=== PATIENT | female | born 1970 | race Asian ===

== ENCOUNTER → 2019-08-17 | Outpatient (CLI) | payer OTHER ==
--- NOTE | 2019-08-18 14:40 | REPMRS ---
Patient History The patient states she had a clinical breast exam in June 2019.Patient has history of breast cancer at age 36. Took tamoxifen for 5 years. Digital Mammo Screening Bilat: August 17, 2019 - Exam #: [id number] Bilateral CC and MLO view(s) were taken. Technologist: Roberta Szymanski, Technologist Prior study comparison: August 04, 2018, left breast diagnostic unilateral mammo, performed at [facility]. July 23, 2017, left breast diagnostic unilateral mammo, performed at [facility]. July 17, 2016, left breast diagnostic unilateral mammo, performed at [facility]. FINDINGS: The breast tissue is heterogeneously dense. This may lower the sensitivity of mammography. There has been no change in the appearance of the left breast parenchyma in the interval since the prior examination. No mass, architectural distortion, or microcalcific grouping has developed. No suspicious finding. Assessment: BI-RADS/ACR category 2 mammogram. Benign Findings. Recommendation Routine screening mammogram of the left breast in 1 year. This mammogram was interpreted with the aid of an FDA-approved computer-aided dectection system. Electronically Signed By: Raffi Navarrete MD 08/18/19 [id number]
== END ==
LOC: M RAD 08:26
PROVIDERS: ATTEND Internal Medicine Hematology & Oncology
DX: Z12.31 Encounter for screening mammogram for malignant neoplasm of breast (principal)

== ENCOUNTER → 2019-09-08 | Outpatient (CLI) | payer OTHER ==
[~2019-09-08] MED LIST: ZYRTTAB8 PO
--- NOTE | 2019-09-08 21:46 | ECHO ---
DATE OF PROCEDURE: 09/08/2019 REFERRING PHYSICIAN: Beni Luque MD INDICATION: Chemotherapy. HEIGHT: 162 cm WEIGHT: 66 kg DIMENSIONS: IVS: 0.7 LV: 4.5 LVPW: 0.8 LA: 3.3 Aorta: 2.6 RV: 2.8 Left atrial volume index: 22 IVC: 1.4 Mitral E wave velocity: 109, A wave: 110 E prime septal: 9.9 E prime lateral: 10.9 FINDINGS: The study is of acceptable technical quality. The patient is in sinus rhythm. Left ventricle is normal size and systolic function with estimated left ventricular ejection fraction (LVEF) around 55-60%. Calculated left ventricle (LV) was 59%. Right ventricle is normal size and systolic function as well. Both atria appear normal. All four cardiac valves were reasonably well seen and appear normal. No pericardial effusion is noted. Inferior vena cava is of normal size. Aortic root and abdominal aorta appear normal. Aortic arch was not well visualized. Doppler interrogation reveals competent aortic valve. There is trace mitral and trace tricuspid insufficiency. Calculated pulmonary artery pressure is within normal limits. Pulmonic valve is functionally competent. Mitral inflow pattern and tissue Doppler imaging of mitral annulus reveal likely normal diastolic function even though there is virtually identical E and A wave velocity on mitral inflow. CONCLUSIONS 1. Study is of acceptable technical quality. 2. Normal LV size and systolic function, normal diastolic function. 3. No significant valvular disease. 4. Normal central venous pressure and likely normal pulmonary artery pressure. COMMENT: Subacute bacterial endocarditis (SBE) prophylaxis is not recommended. Essentially normal echocardiogram.
== END ==
LOC: M CARPUL 08:23
PROVIDERS: ATTEND Internal Medicine Hematology
DX: C50.919 Malignant neoplasm of unspecified site of unspecified female breast (principal)

== ENCOUNTER 2019-11-19 05:59 | Inpatient (IN) | payer OTHER ==
[2019-11-19] VITALS (7 sets, daily range): BP systolic 99–117; BP diastolic 54–65
[~2019-11-19] VITALS: Ht 160 cm; Wt 69.4 kg
[2019-11-19] MEDS ORDERED: LR 1,000 ML IV ONE (06:00)
[2019-11-19] MEDS ORDERED: ceFAZolin SOD 1 GM in D5W MINI-BAG PLUS 50 ML IV ONE (06:00)
[2019-11-19] MEDS ORDERED: QC A650T3 PO (06:48)
[2019-11-19] MEDS ORDERED: SCOPOLAMINE 1MG TRANSDERMAL PATCH TOP ONE (07:15)
[2019-11-19] MEDS ORDERED: LIDOCAINE 1% MDV 20ML VIAL As Ordered ONE (07:17)
[2019-11-19] MEDS ORDERED: BUPIVACAINE LIPOSOME/PF 1.3% 20ML VIAL (13.3MG/ML)(EXPAREL)(C9290 PER1MG) As Ordered ONE (07:17)
[2019-11-19] MEDS ORDERED: BACITRACIN PWD 50,000 UNITS VIAL As Ordered ONE ×2 (07:17→12:12)
[2019-11-19] MEDS ORDERED: EPINEPHrine INJ 1 MG/ML 1ML VIAL As Ordered ONE (07:17)
[2019-11-19] MEDS ORDERED: ONDANSETRON 4MG/2ML VIAL (J2405) As Ordered ONE (07:25)
[2019-11-19] MEDS ORDERED: LIDOCAINE 2% INJ 100 MG/5 ML SDV (FOR ANES.) As Ordered ONE (07:25)
[2019-11-19] MEDS ORDERED: ROCURONIUM BROMIDE 50 MG/5 ML VIAL As Ordered ONE ×2 (07:25→09:00)
[2019-11-19] MEDS ORDERED: fentaNYL 250 MCG/5 ML INJECTION (J3010) As Ordered ONE (07:25)
[2019-11-19] MEDS ORDERED: propofoL 200 MG/20 ML VIAL As Ordered ONE (07:25)
[2019-11-19] MEDS ORDERED: dexameTHASONE 4 MG/ML 1ML VIAL (J1100) As Ordered ONE (07:25)
[2019-11-19] MEDS ORDERED: MIDAZOLAM INJ 2 MG/2 ML VIAL (J2250) As Ordered ONE (07:26)
[2019-11-19] MEDS ORDERED: LACRILUBE (AKWA TEARS) OPHTH OINT 3.5 GM As Ordered ONE (07:56)
[2019-11-19] MEDS ORDERED: ePHEDrine SULFATE 25 MG/5 ML(5MG/ML) SYRINGE As Ordered ONE (08:25)
[2019-11-19] MEDS ORDERED: PHENYLephrine HCL 500 MCG/5 ML (100MCG/ML) SYRINGE (J2370) As Ordered ONE (08:25)
[2019-11-19] MEDS ORDERED: HYDROmorphone HCL 2 MG/ML 1ML VIAL (J1170) As Ordered ONE (09:02)
[2019-11-19] MEDS ORDERED: REMIFENTANIL 1MG 3ML VIAL As Ordered ONE (09:03)
[2019-11-19] MEDS ORDERED: SEVOFLURANE INHAL SOLN 250 ML BTL As Ordered ONE (09:41)
--- NOTE | 2019-11-19 10:30 | HPEPDOC ---
General Date of Admission Nov 19, 2019 at 05:59 Date of Service: Nov 19, 2019 Chief Complaint The patient is a 49-year-old female admitted with a reason for visit of Malignant Neoplasm, Absence Of Right Breast. Source: Patient Exam Limitations: No limitations Timing/Duration: Other (, not applicable) Severity: Other (not applicable) Associated Symptoms: Other (not applicable) History of Present Illness 49 years old lady with past medical history of seasonal allergies, breast cancer, status post right mastectomy, left ovary removed was brought to or by plastic surgery for right breast reconstruction surgery with Dr. richardson. Patient transferred to medical floor after she was stabilized in postop care unit. Patient offers no new complaints. Comfortable in no apparent distress. is at bedside and is at bedside as well Home Medications Scheduled Cetirizine HCl/Pseudoephedrine (Zyrtec-D Tablet) 1 Each Tab.er.12h, 1 TAB PO PRN, (Reported) Scheduled PRN Acetaminophen (Acetaminophen 8 Hour) 650 Mg Tablet.er, 650 MG PO PRN PRN for PAIN, (Reported) Allergies Coded Allergies: No Known Allergies (Unverified , 11/19/19) Past Medical History Medical History Seasonal allergies, breast cancer, right breast mastectomy, left ovary removed, 5 para 2, abarta. 3 Surgical History Right mastectomy. Left oophrectomy Family History Significant Family History: No pertinent family hx Social History * Smoker: Denies Alcohol: Denies Drugs: denies A-FIB/CHADSVASC A-FIB History Current/History of A-Fib/PAF?: No Review of Systems Constitutional: Denies: Chills, Fever, Malaise, Night Sweats, Weakness, Fatigue, Weight Loss, Lethargy, Other Eyes: Denies: Pain, Vision change, Conjunctivae inflammation, Eyelid inflammation, Redness, Other ENT: Denies: Head Aches, Ear Pain, Dysphagia, Sinus Congestion, Post Nasal Drip, Sore Throat, Epistaxis, Other Symptoms Skin: Denies: Rash, Lesions, Breakdown Pulmonary: Denies: Dyspnea, Cough, Pleuritic Chest Pain, Other Symptoms Cardiovascular: Denies: Chest Pain, Palpitations, Orthopnea, Paroxysmal Noc. Dyspnea, Edema, Lt Headedness, Other Symptoms Gastrointestinal: Denies: Nausea, Vomiting, Abdominal Pain, Diarrhea, Constipation, Melena, Hematochezia, Other Symptoms Genitourinary: Denies: Dysuria, Frequency, Incontinence, Hematuria, Retention, Other Symptoms Hematologic: Denies: Bruising, Bleeding Excessively, Petecchia, Purpura, Enlarged Lymph Nodes, Other Hematologic Endocrine: Denies: Polydipsia, Polyphagia, Polyuria, Heat Intolerance, Cold Intolerance, Other Endocrine Sx Musculoskeletal: Denies: Neck Pain, Back Pain, Shoulder Pain, Arm Pain, Hand Pain, Leg Pain, Foot Pain, Joint Pain, Muscle Pain, Spasms, Other Symptoms Neurological: Denies: Weakness, Numbness, Incoordination, Change in speech, Confusion, Seizures, Other Symptoms Psych: Denies: Mood Normal, Anxiety, Depression, Memory Issues, Thoughts of Self Harm, Anger, Thoughts of Harming Other, Other Psych Physical Examination General Exam: Positive: Alert Eye Exam: Positive: PERRLA, Conjunctiva & lids normal ENT Exam: Positive: Atraumatic, Mucous membr. moist/pink Neck Exam: Positive: Supple Chest Exam: Positive: Clear to auscultation, Normal air movement Heart Exam: Positive: Rate Normal Abdomen Exam: Positive: Normal bowel sounds, Other (2 drains and Mohan in place. Also dressing in the right breast and abdominal wall) Extremity Exam: Positive: Normal pulses Skin Exam: Positive: Nl turgor and temperature Neuro Exam: Positive: Strength at 5/5 X4 ext, Cranial Nerves 3-12 NL Psych Exam: Positive: Mood NL, Oriented x 3 Vital Signs Vital Signs Date Time Temp Pulse Resp B/P (MAP) Pulse Ox O2 Delivery O2 Flow Rate FiO2 11/19/19 06:49 98.4 77 18 140/62 (88) 99 Room Air Problems (1) S/P breast reconstruction, right Status: Acute Problem Text: Status post right breast construction surgery Blood loss was about 100 mL in OR Discussed with Dr. Richardson Patient will remain on bed rest today IV fluids and clear liquid diet Pain management, IV IV antibiotics as per plastic surgery DVT prophylaxis with bilateral leonid stockings (2) Breast cancer Status: Chronic Problem Text: History of breast cancer in the past with mastectomy Continue all home meds Plan / VTE VTE Prophylaxis Ordered?: Yes ELISABET RAMOS MD Nov 19, 2019 10:30
[2019-11-19] MEDS ORDERED: ACETAMINOPHEN 1000MG 100ML IV BTL (OFIRMEV) (J0131 PER 10MG) As Ordered ONE (11:35)
[2019-11-19] MEDS ORDERED: KETOROLAC 60 MG/2 ML VIAL (J1885) As Ordered ONE (11:42)
[2019-11-19] MEDS ORDERED: SUGAMMADEX SODIUM 500 MG/5 ML VIAL (BRIDION) As Ordered ONE (12:43)
--- NOTE | 2019-11-19 13:54 | POST-OPPD ---
Postoperative Procedure Note Date Of Procedure: Nov 19, 2019 PREOPERATIVE DIAGNOSIS: Acquired deformity right breast s/p mastectomy. History of breast cancer POSTOPERATIVE DIAGNOSIS: same FINDINGS: Absent right breast. PROCEDURE: Right breast reconstruction with pedicle TRAM flap. (Transverse rectus abdominous myocutaneous) SURGEON: Dr Pedersen SOCIAL SERVICE COORDINATOR: Dr Espino ANESTHESIA: General SPECIMENS: Right breast scar tissue. Lower abdominal tissue. ESTIMATED BLOOD LOSS: 100cc REPLACED: none DRAINS: 10 mm SHNATE drains x 3 COMPLICATIONS: none POSTOPERATIVE CONDITION: stable [id number] KATHIE PEDERSEN DO Nov 19, 2019 13:54
[2019-11-19] MEDS ORDERED: fentaNYL 100 MCG/2 ML INJECTION (J3010) As Ordered ONE (14:12)
[2019-11-19] MEDS: fentaNYL 100 MCG/2 ML INJECTION (J3010) IV PRN ×4 (14:13→14:28)
[2019-11-19] MEDS ORDERED: LR 1,000 ML IV SCH (14:30)
[2019-11-19] MEDS ORDERED: oxyCODONE 5MG TAB PO PRN (14:30)
[2019-11-19] MEDS ORDERED: ONDANSETRON 4MG/2ML VIAL (J2405) IV PRN ×2 (14:30→15:15)
[2019-11-19] MEDS ORDERED: MORPHINE 4 MG/ML 1ML VIAL/SYRINGE (J2270) IV PRN (15:00)
[2019-11-19] MEDS ORDERED: KETOROLAC TROMETHAMINE 10 MG TAB PO PRN (15:15)
[2019-11-19] MEDS: PERCOCET 5MG/325MG TAB PO PRN (16:16)
[2019-11-19] MEDS: ceFAZolin SOD 1 GM in D5W MINI-BAG PLUS 50 ML IV SCH (16:22)
[2019-11-19] MEDS: LR 1,000 ML IV SCH (16:23)
--- NOTE | 2019-11-19 21:12 | RO ---
DATE OF PROCEDURE: 11/19/2019 PREPROCEDURE DIAGNOSIS: Acquired deformity of right breast, status post mastectomy. History of breast cancer. POSTPROCEDURE DIAGNOSIS: Acquired deformity of right breast, status post mastectomy. History of breast cancer. PROCEDURE: Right breast reconstruction with pedicle transverse rectus abdominis myocutaneous (TRAM) flap. SURGEON: Dr. Radha Richardson MEDICAL SCIENTIST: Dr. Espino ANESTHESIA: General. SPECIMENS: Right breast scar tissue and lower abdominal tissue. BLOOD LOSS: 100 mL. No replacement needed. Three mm David-Benavides drains left in place. No complications. DESCRIPTION OF PROCEDURE: This is a 49-year-old female who has a history of breast cancer, status post mastectomy on the right side, which was done in [place] 4 years ago. The patient is a good candidate for autologous reconstruction with a TRAM flap. All the risks and benefits and alternatives discussed with the patient in detail, and she would like to proceed. Medical and oncology clearance were obtained. The day of surgery, she was marked in preoperative holding area in the upright position and a flap was outlined. Then, informed consent was confirmed again, and then she was brought into the operating room, placed in supine position. Preoperative antibiotics were given. Sequential stockings were placed on the lower calves. General anesthesia was induced. She was prepped and draped in the usual sterile fashion. Preoperatively I did a Doppler examination and found good perforators on the left and the right side, but we had chosen to do a contralateral ipsilateral TRAM flap design. So, we started our procedure by creating the lower abdominal incision and then sharp dissection was carried out until the anterior rectus muscle fascia was identified. Then, we started lifting the flaps from lateral to medial, and then a superior incision was carried out, which was at the level of the umbilicus. The umbilicus was left in place, and there was excision around it in a rhomboid fashion. Then, with the right side we lifted the cutaneous flap off the muscle layer and then on the left side careful dissection was done until the semilunaris line was identified and then the anterior rectus sheath was identified and opened longitudinally. The rectus muscle was identified, and then carefully dissected off the transversalis fascia. We identified the inferior epigastric artery by feel and by Doppler and isolated it and then ligated it with a double 2-0 silk tie and a 3-0 Vicryl ligature tie. Then, the inferior portion of the rectus muscle was divided using electrocautery, and then we continued moving superiorly until the rectus muscle was completely freed up from the surrounding fascia to the level of l the costal margin. Abdominal skin flap was than elevated to xiphoid , and then we made an opening, which would be going through the medial side of the Right breast inferior edge for the flap to be passing through. At this point, we opened the mastectomy incision, the old incision scar was excised and sent to pathology. Then, created the prepectoral pocket, and at this point, we used a SPY technique and SPY machine with fluorescent angiography. The Indocyanine green dye was given IV by anesthesia, and the SPY machine was used for fluorescent angiography identify the perfusion of the flap. We found that it is in good perfusion. Then, we carefully tunneled the flap superiorly to its new location, and then at this point, it was set in place by excising the excess tissue and watershed areas. We resected and then the skin was de- epithelialized partially to fit for its new location. The flap was then sutured in with interrupted sutures, and then a 10 mm David-Benavides drain was placed through a separate stab incision. Then, we used the SPY system one more time to do the fluorescent angiography to check for the flap viability, which was successfully confirmed. Then, we turned our attention to the abdomen. The area was irrigated, and while Dr. Gallagher was finishing putting the final stitches in the breast, I was able to start reapproximating the fascia segment on the left part of the rectus, and then the anterior rectus sheath was then approximated with #0 Vicryl interrupted sutures, and then #0 Prolene with running locking stitch. At this point, we measured out the same defect on the right side, and the right anterior sheath of the rectus muscle was plicated to make the abdomen look symmetrical and umbilicus to be midline. At this point, the patient was placed in a flexed position, and the abdominal flap was measured down to its lower part. Exparel was injected in right rectus muscle as well as bilateral obliques muscles, and than we closed abdominal flap in layers with interrupted #0 Vicryl sutures. Two 10 mm David-Benavides drains were placed into separate stab incisions, and sutured in place with #3-0 Monocryl sutures as well. The new opening for the umbilicus was designed in the rhomboid fashion, and umbilicus was brought into view, had good perfusion and it was sutured in place with interrupted #3-0 Monocryl sutures and a #5-0 plain. We used Prineo dressing for the lower abdominal incision, Xeroform for the umbilicus, and Xeroform for the incisions on the breasts. No pressure is allowed on the breasts. We transferred the patient to her bed in a flexed position, which she will remain as such. Also, she has a Mohan catheter, which was placed in the beginning of the procedure, and it will remain with her until tomorrow. The patient was extubated in the operating room without any difficulties, transferred to the recovery room in stable condition. MELANIE
[2019-11-20] MEDS: ceFAZolin SOD 1 GM in D5W MINI-BAG PLUS 50 ML IV SCH ×4 (00:32→15:41)
[2019-11-20 02:00] VITALS: BP 92/54
[2019-11-20 06:00] VITALS: BP 93/55
[2019-11-20] MEDS: LR 1,000 ML IV SCH (06:06)
[2019-11-20 07:00] LABS: HEMATOCRIT 26.6 % (36.0-47.0); HEMOGLOBIN 8.8 g/dl (12.0-15.5); MEAN CORPUSCULAR HEMOGLOBIN 30.6 pg (27.0-33.0); MEAN CORPUSCULAR HGB CONC 33.1 g/dl (32.0-36.5); MEAN CORPUSCULAR VOLUME 92.4 fl (80.0-96.0); PLATELET COUNT, AUTOMATED 319 10^3/uL (150-450); RED BLOOD COUNT 2.88 10^6/uL (4.00-5.40); WHITE BLOOD COUNT 9.6 10^3/uL (4.0-10.0)
[2019-11-20 07:30] LABS: ALBUMIN 2.7 GM/DL (3.2-5.2); ALT/SGPT 34 U/L (12-78); BILIRUBIN,TOTAL 0.5 MG/DL (0.2-1.0); BLOOD UREA NITROGEN 8 MG/DL (7-18); CALCIUM LEVEL 8.2 MG/DL (8.5-10.1); CARBON DIOXIDE LEVEL 29 MEQ/L (21-32); CHLORIDE LEVEL 103 MEQ/L (98-107); GLOMERULAR FILTRATION RATE > 60.0 (>58); GLUCOSE, FASTING 107 MG/DL (70-100); POTASSIUM SERUM 4.1 MEQ/L (3.5-5.1); SODIUM LEVEL 137 MEQ/L (136-145); TOTAL PROTEIN 6.1 GM/DL (6.4-8.2)
--- NOTE | 2019-11-20 08:53 | IPNPDOC ---
Subjective General Date/Time Seen The patient was seen on 11/20/19 at 07:40. Subject Chief Complaint/History The patient is a 49-year-old female admitted with a reason for visit of Malignant Neoplasm, Absence Of Right Breast. Patient s/p TRAM flap to right breast POD 1. Doing well. Pain controlled with Morphine IV and Percocet. She is tolerating fluids. Denies CP, SOB, calf pain. Current Medications Current Medications Current Medications Medications (Trade) Dose Ordered Sig/Kirsten Route PRN Reason Start Time Stop Time Status Last Admin Dose Admin Cefazolin Sodium 1 gm/Dextrose 50 ml @ 100 mls/hr Q8H IV 11/19/19 16:00 11/20/19 00:32 Fentanyl Citrate (Sublimaze) 25 mcg Q5MP PRN IV PAIN LEVEL 5-10 11/19/19 14:30 11/19/19 15:23 DC 11/19/19 14:28 Ketorolac Tromethamine (ToRADol) 10 mg Q4H PRN PO MILD PAIN (PS 1-4) 11/19/19 15:15 11/24/19 15:14 Lactated Ringer's 1,000 ml @ 75 mls/hr [id number] IV 11/19/19 15:00 11/20/19 06:06 Lactated Ringer's 1,000 ml @ 100 mls/hr Q10H IV 11/19/19 14:30 11/19/19 15:30 DC Morphine Sulfate (Morphine Sulfate Inj) 4 mg Q4H PRN IV SEVERE PAIN (PS 8-10) 11/19/19 15:00 11/19/19 17:02 Ondansetron HCl (ZOFRAN INJection) 4 mg Q4H PRN IV NAUSEA 11/19/19 15:15 11/19/19 17:17 Ondansetron HCl (ZOFRAN INJection) 4 mg Q4HP PRN IV NAUSEA OR VOMITING 11/19/19 14:30 11/19/19 15:30 DC Oxycodone HCl (Roxicodone, Oxyir) 5 mg ASDIRECTED PRN PO PAIN LEVEL 1-4 11/19/19 14:30 11/19/19 15:30 DC Oxycodone/ Acetaminophen (Percocet 5mg/ 325mg Tablet) 2 tab Q6H PRN PO MODERATE PAIN (PS 5-7) 11/19/19 15:15 11/19/19 16:16 Allergies Coded Allergies: No Known Allergies (Unverified , 11/19/19) Objective Physical Examination Examination GENERAL APPEARANCE:Patient seen, laying in bed, awake, alert, and oriented. Comfortable, in no acute distress. SKIN: Warm and moist. BREAST: Right breast flap pink, warm, viable. Middle chest tunnel, soft. Incisions intact. SHANTE drain with serosanguinous drainage. LUNGS: Clear to auscultation bilaterally. No wheezing appreciated. HEART: No chest wall abnormalities. Regular rate and rhythm with no murmurs appreciated. ABDOMEN: Abdomen is soft. Post op pain. Umbilicus viable. Incision intact. SHANTE drains with serosanguinous drainage. Vital Signs Vital Signs Date Time Temp Pulse Resp B/P (MAP) Pulse Ox O2 Delivery O2 Flow Rate FiO2 11/20/19 06:00 98.0 72 19 93/55 (68) 96 Room Air I&Os I&O- Last 24 Hours up to 6 AM 11/20/19 06:00 Intake Total 3520 ml Output Total 1055 ml Balance 2465 ml Laboratory Data Labs 24H Laboratory Tests 2 11/20/19 06:37: Nucleated Red Blood Cells % (auto) 0.0, Anion Gap 5L, Glomerular Filtration Rate > 60.0, Calcium Level 8.2L, Total Bilirubin 0.5, Aspartate Amino Transf (AST/SGOT) 29, Alanine Aminotransferase (ALT/SGPT) 34, Alkaline Phosphatase 33L, Total Protein 6.1L, Albumin 2.7L, Albumin/Globulin Ratio 0.79L CBC/BMP Laboratory Tests 11/20/19 06:37 Impression Right breast reconstruction with pedicle TRAM flap, POD 1. Recovering well. Today: Monitor flap, continue with pain control, Morphine, Percocet, Toradol. D/c Mohan cath. Order Bedside commode. Up in the chair with help, remain in flex position at all times. Monitor SHANTE drains. Advance diet as tolerated. D/c IVF. SCD in bed, Incentive spirometry. H/H repeat tomorrow, Start with Iron. Plan / VTE VTE Prophylaxis Ordered?: Yes KATHIE PEDERSEN DO Nov 20, 2019 08:53
[2019-11-20] MEDS: PERCOCET 5MG/325MG TAB PO PRN ×2 (09:30→15:40)
[2019-11-20 09:40] VITALS: BP 96/51
--- NOTE | 2019-11-20 10:01 | IPNPDOC ---
Subjective Date Seen The patient was seen on 11/20/19. Subjective Chief Complaint/HPI Patient's pain is under control with pain medications, was seen by Dr. zhou this morning, official note is awaited General: Denies: ROS Unobtainable, Chills, Night Sweats, Fatigue, Malaise, Normal Appetite, Other Symptoms Constitutional: Denies: Chills, Fever, Malaise, Night Sweats, Weakness, Fatigue , Weight Loss, Lethargy, Other Pulmonary: Denies: Dyspnea, Cough, Pleuritic Chest Pain, Other Symptoms Cardiovascular: Denies: Chest Pain, Palpitations, Orthopnea, Paroxysmal Noc. Dyspnea, Edema, Lt Headedness, Other Symptoms Gastrointestinal: Denies: Nausea, Vomiting, Abdominal Pain, Diarrhea, Constipation, Melena, Hematochezia, Other Symptoms Musculoskeletal: Denies: Neck Pain, Back Pain, Shoulder Pain, Arm Pain, Hand Pain, Leg Pain, Foot Pain, Joint Pain, Muscle Pain, Spasms, Other Symptoms Neurological: Denies: Weakness, Numbness, Incoordination, Change in speech, Confusion, Seizures, Other Symptoms Objective Physical Examination ENT Exam: Positive: Atraumatic, Mucous membr. moist/pink Neck Exam: Positive: Supple Chest Exam: Positive: Clear to auscultation, Normal air movement Heart Exam: Positive: Rate Normal Abdomen Exam: Positive: Normal bowel sounds, Other (2 drains and Mohan in place. Also dressing in the right breast and abdominal wall) Extremity Exam: Positive: Normal pulses Skin Exam: Positive: Nl turgor and temperature Assessment /Plan Problems (1) S/P breast reconstruction, right Status: Acute Problem Text: Status post right breast reconstruction surgery with the TRAM procedure Patient's pain is under well control Will await further recommendations from plastic surgery as when to start diet as well as activity of the patient Mohan catheter is in place as well as 2 SHANTE drains Continue present antibiotics and all other meds (2) Breast cancer Status: Chronic Problem Text: As per home meds Plan/VTE VTE Prophylaxis Ordered?: Yes VS, I&O, 24H, Fishbone Vital Signs/I&O Vital Signs Date Time Temp Pulse Resp B/P (MAP) Pulse Ox O2 Delivery O2 Flow Rate FiO2 11/20/19 09:30 18 Room Air 11/20/19 06:00 98.0 72 93/55 (68) 96 I&O- Last 24 Hours up to 6 AM 11/20/19 06:00 Intake Total 3520 ml Output Total 1055 ml Balance 2465 ml Laboratory Data 24H LABS Laboratory Tests 2 11/20/19 06:37: Nucleated Red Blood Cells % (auto) 0.0, Anion Gap 5L, Glomerular Filtration Rate > 60.0, Calcium Level 8.2L, Total Bilirubin 0.5, Aspartate Amino Transf (AST/SGOT) 29, Alanine Aminotransferase (ALT/SGPT) 34, Alkaline Phosphatase 33L, Total Protein 6.1L, Albumin 2.7L, Albumin/Globulin Ratio 0.79L CBC/BMP Laboratory Tests 11/20/19 06:37 ELISABET RAMOS MD Nov 20, 2019 10:00
[2019-11-20] MEDS: FERROUS SULFATE 325MG TAB PO SCH ×2 (11:49→20:46)
[2019-11-20] MEDS: CEPHALEXIN 500 MG CAP PO SCH ×2 (11:49→15:40)
[2019-11-20 14:58] VITALS: BP 95/56
[2019-11-20] MEDS ORDERED: CEPHALEXIN 500 MG CAP PO SCH (21:00)
[2019-11-20 22:00] VITALS: BP 102/56
[2019-11-21] VITALS (12 sets, daily range): BP systolic 94–114; BP diastolic 52–67
[2019-11-21 07:19] LABS: BASO % 0.3 % (0.0-1.0); EOS # 0.2 10^3/uL (0.0-0.5); EOS % 1.5 % (0.0-3.0); HEMATOCRIT 25.3 % (36.0-47.0); HEMOGLOBIN 7.9 g/dl (12.0-15.5); LYMPH # 2.5 10^3/uL (1.5-5.0); LYMPH % 21.2 % (24.0-44.0); MEAN CORPUSCULAR HEMOGLOBIN 29.5 pg (27.0-33.0); MEAN CORPUSCULAR HGB CONC 31.2 g/dl (32.0-36.5); MEAN CORPUSCULAR VOLUME 94.4 fl (80.0-96.0); MONO # 1.2 10^3/uL (0.0-0.8); MONO % 9.9 % (0.0-5.0); NEUTROPHILS # 7.7 10^3/uL (1.5-8.5); NEUTROPHILS % 66.5 % (36.0-66.0); PLATELET COUNT, AUTOMATED 287 10^3/uL (150-450); RED BLOOD COUNT 2.68 10^6/uL (4.00-5.40); WHITE BLOOD COUNT 11.6 10^3/uL (4.0-10.0)
[2019-11-21 07:44] LABS: ALBUMIN 2.6 GM/DL (3.2-5.2); ALT/SGPT 36 U/L (12-78); BILIRUBIN,TOTAL 0.4 MG/DL (0.2-1.0); BLOOD UREA NITROGEN 7 MG/DL (7-18); CALCIUM LEVEL 7.6 MG/DL (8.5-10.1); CARBON DIOXIDE LEVEL 27 MEQ/L (21-32); CHLORIDE LEVEL 102 MEQ/L (98-107); CREATININE FOR GFR 0.64 MG/DL (0.55-1.30); GLOMERULAR FILTRATION RATE > 60.0 (>58); GLUCOSE, FASTING 101 MG/DL (70-100); POTASSIUM SERUM 3.7 MEQ/L (3.5-5.1); SODIUM LEVEL 136 MEQ/L (136-145); TOTAL PROTEIN 6.4 GM/DL (6.4-8.2)
[2019-11-21] MEDS ORDERED: ACETAMINOPHEN TAB 650MG DOSE (2X325MG) PO PRN ×2 (09:30)
--- NOTE | 2019-11-21 09:44 | IPNPDOC ---
Subjective General Date/Time Seen The patient was seen on 11/21/19 at 09:34. Subject Chief Complaint/History The patient is a 49-year-old female admitted with a reason for visit of Malignant Neoplasm, Absence Of Right Breast. Patient is s/p Right breast pedicle TRAM flap reconstruction POD 2 Pain improving on Percocet and Tramadol. Patient been up in the chair. No other complains. Current Medications Current Medications Current Medications Medications (Trade) Dose Ordered Sig/Kirsten Route PRN Reason Start Time Stop Time Status Last Admin Dose Admin Acetaminophen (Tylenol Tab) 650 mg Q6HP PRN PO PAIN / FEVER 11/21/19 09:30 UNV Acetaminophen (Tylenol Tab) 650 mg Q6HP PRN PO PAIN / FEVER 11/21/19 09:30 UNV Cefazolin Sodium 1 gm/Dextrose 50 ml @ 100 mls/hr Q8H IV 11/19/19 16:00 11/20/19 20:21 DC 11/20/19 00:32 Cephalexin Monohydrate (Keflex) 500 mg TID PO 11/20/19 09:00 11/20/19 19:58 DC 11/20/19 15:40 Cephalexin Monohydrate (Keflex) 500 mg TID PO 11/20/19 21:00 11/20/19 20:46 Fentanyl Citrate (Sublimaze) 25 mcg Q5MP PRN IV PAIN LEVEL 5-10 11/19/19 14:30 11/19/19 15:23 DC 11/19/19 14:28 Ferrous Sulfate (Ferrous Sulfate) 325 mg BID PO 11/20/19 09:00 11/20/19 20:46 Ketorolac Tromethamine (ToRADol) 10 mg Q4H PRN PO MILD PAIN (PS 1-4) 11/19/19 15:15 11/21/19 09:27 DC 11/20/19 20:47 Lactated Ringer's 1,000 ml @ 75 mls/hr [id number] IV 11/19/19 15:00 11/20/19 18:19 DC 11/20/19 06:06 Lactated Ringer's 1,000 ml @ 100 mls/hr Q10H IV 11/19/19 14:30 11/19/19 15:30 DC Morphine Sulfate (Morphine Sulfate Inj) 4 mg Q4H PRN IV SEVERE PAIN (PS 8-10) 11/19/19 15:00 11/19/19 17:02 Ondansetron HCl (ZOFRAN INJection) 4 mg Q4H PRN IV NAUSEA 11/19/19 15:15 11/19/19 17:17 Ondansetron HCl (ZOFRAN INJection) 4 mg Q4HP PRN IV NAUSEA OR VOMITING 11/19/19 14:30 11/19/19 15:30 DC Oxycodone HCl (Roxicodone, Oxyir) 5 mg ASDIRECTED PRN PO PAIN LEVEL 1-4 11/19/19 14:30 11/19/19 15:30 DC Oxycodone/ Acetaminophen (Percocet 5mg/ 325mg Tablet) 2 tab Q6H PRN PO MODERATE PAIN (PS 5-7) 11/19/19 15:15 11/20/19 15:40 Allergies Coded Allergies: No Known Allergies (Unverified , 11/19/19) Objective Physical Examination Examination GENERAL APPEARANCE:Patient seen, laying in bed, awake, alert, and oriented. Comfortable, in no acute distress. SKIN: Warm and moist. BEAST: Right breast with flap, viable, warm. Incision intact. SHANTE drain with serosanguinous drainage 140cc/24 hrs LUNGS: Clear to auscultation bilaterally. No wheezing appreciated. HEART: No chest wall abnormalities. Regular rate and rhythm with no murmurs appreciated. ABDOMEN: Abdomen is soft, post op tenderness. Incision intact. Umbilicus viable. SHANTE drains with serosanguinous drainage. 100cc/24hr each drain. Vital Signs Vital Signs Date Time Temp Pulse Resp B/P (MAP) Pulse Ox O2 Delivery O2 Flow Rate FiO2 11/21/19 06:00 99.4 93 16 108/53 (71) 95 Nasal Cannula 1.0 I&Os I&O- Last 24 Hours up to 6 AM 11/21/19 06:00 Intake Total 1625 ml Output Total 1665 ml Balance -40 ml Laboratory Data Labs 24H Laboratory Tests 2 11/21/19 06:47: Immature Granulocyte % (Auto) 0.6, Neutrophils (%) (Auto) 66.5H, Lymphocytes (%) (Auto) 21.2L, Monocytes (%) (Auto) 9.9H, Eosinophils (%) (Auto) 1.5, Basophils (%) (Auto) 0.3, Neutrophils # (Auto) 7.7, Lymphocytes # (Auto) 2.5, Monocytes # (Auto) 1.2H, Eosinophils # (Auto) 0.2, Basophils # (Auto) 0.0, Nucleated Red Blood Cells % (auto) 0.0, Anion Gap 7L, Glomerular Filtration Rate > 60.0, Calcium Level 7.6L, Total Bilirubin 0.4, Aspartate Amino Transf (AST/SGOT) 43H, Alanine Aminotransferase (ALT/SGPT) 36, Alkaline Phosphatase 39L, Total Protein 6.4, Albumin 2.6L, Albumin/Globulin Ratio 0.68L CBC/BMP Laboratory Tests 11/21/19 06:47 Impression Right breast reconstruction s/p mastectomy with pedicled TRAM flap POD 2. Hb 7.9, asymptomatic, but due to the nature of surgery and flap perfusion issues, will transfuse 2 units PRBC. Continue with Iron. Dressings changed today. Continue with flap monitoring, SHANTE output monitoring. D/c Toradol Change pain medication regimen to Tylonol/Oxycodone All finding discussed with patient, and medical attending. Plan / VTE VTE Prophylaxis Ordered?: Yes KATHIE PEDERSEN DO Nov 21, 2019 09:44
[2019-11-21] MEDS ORDERED: oxyCODONE 5MG TAB PO PRN (10:00)
--- NOTE | 2019-11-21 10:31 | IPNPDOC ---
Subjective Date Seen The patient was seen on 11/21/19. Subjective Chief Complaint/HPI Patient is comfortable in no distress. Offers no new complaints. at the bedside. Some oozing was noted from wound, but Dr. Richardson General: Denies: ROS Unobtainable, Chills, Night Sweats, Fatigue, Malaise, Normal Appetite, Other Symptoms Constitutional: Denies: Chills, Fever, Malaise, Night Sweats, Weakness, Fatigue, Weight Loss, Lethargy, Other Skin: Reports: Other (dressing and abdomen and right breast) Pulmonary: Denies: Dyspnea, Cough, Pleuritic Chest Pain, Other Symptoms Cardiovascular: Denies: Chest Pain, Palpitations, Orthopnea, Paroxysmal Noc. Dyspnea, Edema, Lt Headedness, Other Symptoms Endocrine: Denies: Polydipsia, Polyphagia, Polyuria, Heat Intolerance, Cold Intolerance, Other Endocrine Sx Musculoskeletal: Denies: Neck Pain, Back Pain, Shoulder Pain, Arm Pain, Hand Pain, Leg Pain, Foot Pain, Joint Pain, Muscle Pain, Spasms, Other Symptoms Neurological: Denies: Weakness, Numbness, Incoordination, Change in speech, Confusion, Seizures, Other Symptoms Objective Physical Examination ENT Exam: Positive: Atraumatic, Mucous membr. moist/pink Neck Exam: Positive: Supple Chest Exam: Positive: Clear to auscultation, Normal air movement Heart Exam: Positive: Rate Normal Abdomen Exam: Positive: Normal bowel sounds, Other Extremity Exam: Positive: Normal pulses Skin Exam: Positive: Nl turgor and temperature Assessment /Plan Problems (1) S/P breast reconstruction, right Status: Acute Problem Text: Status post right breast reconstruction surgery with the TRAM procedure Will DC Toradol secondary to mild oozing from the wound Start Tylenol 650 mg by mouth every 4 hours when necessary and oxycodone 10 mg by mouth every 4 hours when necessary alternating Transfuse 2 units of blood to maintain hemoglobin more than 8 for enhanced oxygenation and healing Discussed with Dr. Richardson, we will repeat labs in a.m. (2) Breast cancer Status: Chronic Problem Text: As per home meds Plan/VTE VTE Prophylaxis Ordered?: Yes VS, I&O, 24H, Fishbone Vital Signs/I&O Vital Signs Date Time Temp Pulse Resp B/P (MAP) Pulse Ox O2 Delivery O2 Flow Rate FiO2 11/21/19 06:00 99.4 93 16 108/53 (71) 95 Nasal Cannula 1.0 I&O- Last 24 Hours up to 6 AM 11/21/19 06:00 Intake Total 1625 ml Output Total 1665 ml Balance -40 ml Laboratory Data 24H LABS Laboratory Tests 2 11/21/19 06:47: Immature Granulocyte % (Auto) 0.6, Neutrophils (%) (Auto) 66.5H, Lymphocytes (%) (Auto) 21.2L, Monocytes (%) (Auto) 9.9H, Eosinophils (%) (Auto) 1.5, Basophils (%) (Auto) 0.3, Neutrophils # (Auto) 7.7, Lymphocytes # (Auto) 2.5, Monocytes # (Auto) 1.2H, Eosinophils # (Auto) 0.2, Basophils # (Auto) 0.0, Nucleated Red Blood Cells % (auto) 0.0, Anion Gap 7L, Glomerular Filtration Rate > 60.0, Calcium Level 7.6L, Total Bilirubin 0.4, Aspartate Amino Transf (AST/SGOT) 43H, Alanine Aminotransferase (ALT/SGPT) 36, Alkaline Phosphatase 39L, Total Protein 6.4, Albumin 2.6L, Albumin/Globulin Ratio 0.68L CBC/BMP Laboratory Tests 11/21/19 06:47 ELISABET RAMOS MD Nov 21, 2019 10:31
[2019-11-21] MEDS: FERROUS SULFATE 325MG TAB PO SCH ×2 (10:34→20:22)
[2019-11-21] MEDS: ACETAMINOPHEN TAB 650MG DOSE (2X325MG) PO PRN ×2 (10:34→20:22)
[2019-11-21] MEDS: ceFAZolin SOD 1 GM in D5W MINI-BAG PLUS 50 ML IV SCH ×2 (12:33→18:03)
[2019-11-22] MEDS: ceFAZolin SOD 1 GM in D5W MINI-BAG PLUS 50 ML IV SCH ×3 (02:36→17:19)
[2019-11-22 06:00] VITALS: BP 107/59
[2019-11-22 07:22] LABS: HEMATOCRIT 33.1 % (36.0-47.0); MEAN CORPUSCULAR HEMOGLOBIN 29.4 pg (27.0-33.0); MEAN CORPUSCULAR HGB CONC 32.3 g/dl (32.0-36.5); MEAN CORPUSCULAR VOLUME 90.9 fl (80.0-96.0); PLATELET COUNT, AUTOMATED 302 10^3/uL (150-450); RED BLOOD COUNT 3.64 10^6/uL (4.00-5.40); WHITE BLOOD COUNT 15.2 10^3/uL (4.0-10.0)
[2019-11-22 07:28] LABS: HEMOGLOBIN 10.7 g/dl (12.0-15.5)
[2019-11-22] MEDS: FERROUS SULFATE 325MG TAB PO SCH ×2 (09:00→20:29)
--- NOTE | 2019-11-22 09:55 | IPNPDOC ---
Subjective Date Seen The patient was seen on 11/22/19. Subjective Chief Complaint/HPI Patient looks much better today. Sitting up in the bed in no distress, not complaining of any pain. is at bedside General: Denies: ROS Unobtainable, Chills, Night Sweats, Fatigue, Malaise, Normal Appetite, Other Symptoms Constitutional: Denies: Chills, Fever, Malaise, Night Sweats, Weakness, F atigue, Weight Loss, Lethargy, Other Skin: Denies: Rash, Lesions, Jaundice, Bruising, Itching, Dry, Breakdown, Nail Changes, Other Pulmonary: Denies: Dyspnea, Cough, Pleuritic Chest Pain, Other Symptoms Cardiovascular: Denies: Chest Pain, Palpitations, Orthopnea, Paroxysmal Noc. Dyspnea, Edema, Lt Headedness, Other Symptoms Gastrointestinal: Denies: Nausea, Vomiting, Abdominal Pain, Diarrhea, Constipation, Melena, Hematochezia, Other Symptoms Endocrine: Denies: Polydipsia, Polyphagia, Polyuria, Heat Intolerance, Cold Intolerance, Other Endocrine Sx Musculoskeletal: Denies: Neck Pain, Back Pain, Shoulder Pain, Arm Pain, Hand Pain, Leg Pain, Foot Pain, Joint Pain, Muscle Pain, Spasms, Other Symptoms Neurological: Denies: Weakness, Numbness, Incoordination, Change in speech, Confusion, Seizures, Other Symptoms Objective Physical Examination ENT Exam: Positive: Atraumatic, Mucous membr. moist/pink Neck Exam: Positive: Supple Chest Exam: Positive: Clear to auscultation, Normal air movement Heart Exam: Positive: Rate Normal Abdomen Exam: Positive: Normal bowel sounds, Other Extremity Exam: Positive: Normal pulses Skin Exam: Positive: Nl turgor and temperature Assessment /Plan Problems (1) S/P breast reconstruction, right Status: Acute Problem Text: Status post right breast reconstruction surgery with the TRAM procedure Will DC Toradol secondary to mild oozing from the wound Start Tylenol 650 mg by mouth every 4 hours when necessary and oxycodone 10 mg by mouth every 4 hours when necessary alternating . 2 units of PRBCs were transfused with improved H&H 10.7 and 33.1 . She did have a slightly elevated WBC count 15.2 today, but is most likely reactive in nature, will repeat CBC in the a.m. and clinically monitor Patient also had a low-grade fever of 99.9, which most likely is post op in nature, but will get 12 sets of blood cultures as baseline (2) Breast cancer Status: Chronic Problem Text: As per home meds Plan/VTE VTE Prophylaxis Ordered?: Yes VS, I&O, 24H, Fishbone Vital Signs/I&O Vital Signs Date Time Temp Pulse Resp B/P (MAP) Pulse Ox O2 Delivery O2 Flow Rate FiO2 11/22/19 06:00 99.9 90 18 107/59 (75) 94 Room Air 11/21/19 22:00 I&O- Last 24 Hours up to 6 AM 11/22/19 06:00 Intake Total 1280 ml Output Total 4480 ml Balance -3200 ml Laboratory Data 24H LABS Laboratory Tests 2 11/22/19 06:56: Nucleated Red Blood Cells % (auto) 0.0 CBC/BMP Laboratory Tests 11/22/19 06:56 Microbiology Microbiology 11/22/19 Blood Culture, Received Pending ELISABET RAMOS MD Nov 22, 2019 09:55
--- NOTE | 2019-11-22 09:57 | IPNPDOC ---
Subjective General Date/Time Seen The patient was seen on 11/22/19 at 09:48. Subject Chief Complaint/History The patient is a 49-year-old female admitted with a reason for visit of Malignant Neoplasm, Absence Of Right Breast. Patient s/p pedicle TRAM flap reconstruction for the right breast POD 3. Pain much improved, using Tylenol. S/p transfusion 2 units PRBC yesterday, feeling stronger. SHANTE ouput reduced. Tolerating diet. Current Medications Current Medications Current Medications Medications (Trade) Dose Ordered Sig/Kirsten Route PRN Reason Start Time Stop Time Status Last Admin Dose Admin Acetaminophen (Tylenol Tab) 650 mg Q4HP PRN PO PAIN OR FEVER 11/21/19 10:00 11/21/19 20:22 Acetaminophen (Tylenol Tab) 650 mg Q6HP PRN PO PAIN / FEVER 11/21/19 09:30 11/21/19 09:50 DC Acetaminophen (Tylenol Tab) 650 mg Q6HP PRN PO PAIN / FEVER 11/21/19 09:30 UNV Cefazolin Sodium 1 gm/Dextrose 50 ml @ 100 mls/hr Q8H IV 11/19/19 16:00 11/20/19 20:21 DC 11/20/19 00:32 Cefazolin Sodium 1 gm/Dextrose 50 ml @ 100 mls/hr Q8H IV 11/21/19 10:00 11/22/19 09:00 Cephalexin Monohydrate (Keflex) 500 mg TID PO 11/20/19 09:00 11/20/19 19:58 DC 11/20/19 15:40 Cephalexin Monohydrate (Keflex) 500 mg TID PO 11/20/19 21:00 11/21/19 09:52 DC 11/20/19 20:46 Fentanyl Citrate (Sublimaze) 25 mcg Q5MP PRN IV PAIN LEVEL 5-10 11/19/19 14:30 11/19/19 15:23 DC 11/19/19 14:28 Ferrous Sulfate (Ferrous Sulfate) 325 mg BID PO 11/20/19 09:00 11/22/19 09:00 Ketorolac Tromethamine (ToRADol) 10 mg Q4H PRN PO MILD PAIN (PS 1-4) 11/19/19 15:15 11/21/19 09:27 DC 11/20/19 20:47 Lactated Ringer's 1,000 ml @ 75 mls/hr [id number] IV 11/19/19 15:00 11/20/19 18:19 DC 11/20/19 06:06 Lactated Ringer's 1,000 ml @ 100 mls/hr Q10H IV 11/19/19 14:30 11/19/19 15:30 DC Morphine Sulfate (Morphine Sulfate Inj) 4 mg Q4H PRN IV SEVERE PAIN (PS 8-10) 11/19/19 15:00 11/19/19 17:02 Ondansetron HCl (ZOFRAN INJection) 4 mg Q4H PRN IV NAUSEA 11/19/19 15:15 11/19/19 17:17 Ondansetron HCl (ZOFRAN INJection) 4 mg Q4HP PRN IV NAUSEA OR VOMITING 11/19/19 14:30 11/19/19 15:30 DC Oxycodone HCl (Roxicodone, Oxyir) 5 mg ASDIRECTED PRN PO PAIN LEVEL 1-4 11/19/19 14:30 11/19/19 15:30 DC Oxycodone HCl (Roxicodone, Oxyir) 10 mg Q4HP PRN PO SEVERE PAIN (PS 8-10) 11/21/19 10:00 Oxycodone/ Acetaminophen (Percocet 5mg/ 325mg Tablet) 2 tab Q6H PRN PO MODERATE PAIN (PS 5-7) 11/19/19 15:15 11/21/19 09:50 DC 11/20/19 15:40 Allergies Coded Allergies: No Known Allergies (Unverified , 11/19/19) Objective Physical Examination Examination GENERAL APPEARANCE:Patient seen, laying in bed, awake, alert, and oriented. Comfortable, in no acute distress. SKIN: Warm and moist. BREAST: flap viable, warm, pink. Incisions intact. SHANTE drains with serosanguinous drainage, much reduced, light color 75cc/24. 10 cc since midnight. LUNGS: Clear to auscultation bilaterally. No wheezing appreciated. HEART: No chest wall abnormalities. Regular rate and rhythm with no murmurs appreciated. ABDOMEN: Abdomen is soft, NT/ND. Incisions intact. SHANTE drains light serosanguinous. 75/85cc/24, 20/20cc since midnight Vital Signs Vital Signs Date Time Temp Pulse Resp B/P (MAP) Pulse Ox O2 Delivery O2 Flow Rate FiO2 11/22/19 06:00 99.9 90 18 107/59 (75) 94 Room Air 11/21/19 22:00 I&Os I&O- Last 24 Hours up to 6 AM 11/22/19 06:00 Intake Total 1280 ml Output Total 4480 ml Balance -3200 ml Laboratory Data Labs 24H Laboratory Tests 2 11/22/19 06:56: Nucleated Red Blood Cells % (auto) 0.0 CBC/BMP Laboratory Tests 11/22/19 06:56 Microbiology Microbiology 11/22/19 Blood Culture, Received Pending Impression S/p TRAM reconstruction to right breast POD 3. H/H stable. Pain improved. Start with ambulating around the room today, up to the chair for all meals. Monitor drains Incentive spirometry May have 1 cup of coffee a day. Plan / VTE VTE Prophylaxis Ordered?: Yes KATHIE PEDERSEN DO Nov 22, 2019 09:57
[2019-11-22] MEDS: ACETAMINOPHEN TAB 650MG DOSE (2X325MG) PO PRN (12:01)
[2019-11-22 14:00] VITALS: BP 110/59
[2019-11-22 22:00] VITALS: BP 112/59
[2019-11-23] MEDS: ceFAZolin SOD 1 GM in D5W MINI-BAG PLUS 50 ML IV SCH ×3 (02:16→17:22)
[2019-11-23 06:00] VITALS: BP 112/59
[2019-11-23 06:49] LABS: BASO % 0.2 % (0.0-1.0); EOS # 0.4 10^3/uL (0.0-0.5); EOS % 2.8 % (0.0-3.0); HEMATOCRIT 31.6 % (36.0-47.0); HEMOGLOBIN 10.7 g/dl (12.0-15.5); LYMPH # 3.5 10^3/uL (1.5-5.0); LYMPH % 22.9 % (24.0-44.0); MEAN CORPUSCULAR HEMOGLOBIN 30.3 pg (27.0-33.0); MEAN CORPUSCULAR HGB CONC 33.9 g/dl (32.0-36.5); MEAN CORPUSCULAR VOLUME 89.5 fl (80.0-96.0); MONO # 1.3 10^3/uL (0.0-0.8); MONO % 8.5 % (0.0-5.0); NEUTROPHILS # 9.8 10^3/uL (1.5-8.5); NEUTROPHILS % 64.8 % (36.0-66.0); PLATELET COUNT, AUTOMATED 370 10^3/uL (150-450); RED BLOOD COUNT 3.53 10^6/uL (4.00-5.40); WHITE BLOOD COUNT 15.1 10^3/uL (4.0-10.0)
[2019-11-23 07:11] LABS: BLOOD UREA NITROGEN 5 MG/DL (7-18); CALCIUM LEVEL 8.6 MG/DL (8.5-10.1); CARBON DIOXIDE LEVEL 28 MEQ/L (21-32); CHLORIDE LEVEL 103 MEQ/L (98-107); CREATININE FOR GFR 0.56 MG/DL (0.55-1.30); GLOMERULAR FILTRATION RATE > 60.0 (>58); GLUCOSE, FASTING 105 MG/DL (70-100); POTASSIUM SERUM 3.6 MEQ/L (3.5-5.1); SODIUM LEVEL 137 MEQ/L (136-145)
[2019-11-23] MEDS: FERROUS SULFATE 325MG TAB PO SCH ×2 (09:13→22:06)
--- NOTE | 2019-11-23 09:30 | IPNPDOC ---
Subjective General Date/Time Seen The patient was seen on 11/23/19 at 07:24. Subject Chief Complaint/History The patient is a 49-year-old female admitted with a reason for visit of Malignant Neoplasm, Absence Of Right Breast. S/p Right breast reconstruction with TRAM flap POD 4. Doing well today. Pain controlled with Tylenol. Tolerating diet, had a BM. Current Medications Current Medications Current Medications Medications (Trade) Dose Ordered Sig/Kirsten Route PRN Reason Start Time Stop Time Status Last Admin Dose Admin Acetaminophen (Tylenol Tab) 650 mg Q4HP PRN PO PAIN OR FEVER 11/21/19 10:00 11/22/19 12:01 Acetaminophen (Tylenol Tab) 650 mg Q6HP PRN PO PAIN / FEVER 11/21/19 09:30 11/21/19 09:50 DC Acetaminophen (Tylenol Tab) 650 mg Q6HP PRN PO PAIN / FEVER 11/21/19 09:30 UNV Cefazolin Sodium 1 gm/Dextrose 50 ml @ 100 mls/hr Q8H IV 11/19/19 16:00 11/20/19 20:21 DC 11/20/19 00:32 Cefazolin Sodium 1 gm/Dextrose 50 ml @ 100 mls/hr Q8H IV 11/21/19 10:00 11/23/19 09:13 Cephalexin Monohydrate (Keflex) 500 mg TID PO 11/20/19 09:00 11/20/19 19:58 DC 11/20/19 15:40 Cephalexin Monohydrate (Keflex) 500 mg TID PO 11/20/19 21:00 11/21/19 09:52 DC 11/20/19 20:46 Fentanyl Citrate (Sublimaze) 25 mcg Q5MP PRN IV PAIN LEVEL 5-10 11/19/19 14:30 11/19/19 15:23 DC 11/19/19 14:28 Ferrous Sulfate (Ferrous Sulfate) 325 mg BID PO 11/20/19 09:00 11/23/19 09:13 Ketorolac Tromethamine (ToRADol) 10 mg Q4H PRN PO MILD PAIN (PS 1-4) 11/19/19 15:15 11/21/19 09:27 DC 11/20/19 20:47 Lactated Ringer's 1,000 ml @ 75 mls/hr [id number] IV 11/19/19 15:00 11/20/19 18:19 DC 11/20/19 06:06 Lactated Ringer's 1,000 ml @ 100 mls/hr Q10H IV 11/19/19 14:30 11/19/19 15:30 DC Morphine Sulfate (Morphine Sulfate Inj) 4 mg Q4H PRN IV SEVERE PAIN (PS 8-10) 11/19/19 15:00 11/19/19 17:02 Ondansetron HCl (ZOFRAN INJection) 4 mg Q4H PRN IV NAUSEA 11/19/19 15:15 11/19/19 17:17 Ondansetron HCl (ZOFRAN INJection) 4 mg Q4HP PRN IV NAUSEA OR VOMITING 11/19/19 14:30 11/19/19 15:30 DC Oxycodone HCl (Roxicodone, Oxyir) 5 mg ASDIRECTED PRN PO PAIN LEVEL 1-4 11/19/19 14:30 11/19/19 15:30 DC Oxycodone HCl (Roxicodone, Oxyir) 10 mg Q4HP PRN PO SEVERE PAIN (PS 8-10) 11/21/19 10:00 Oxycodone/ Acetaminophen (Percocet 5mg/ 325mg Tablet) 2 tab Q6H PRN PO MODERATE PAIN (PS 5-7) 11/19/19 15:15 11/21/19 09:50 DC 11/20/19 15:40 Allergies Coded Allergies: No Known Allergies (Unverified , 11/19/19) Objective Physical Examination Examination GENERAL APPEARANCE:Patient seen, laying in bed, awake, alert, and oriented. Comfortable, in no acute distress. SKIN: Warm and moist. BREAST: Flap viable, warm, pink. Incision intact. SHANTE drains light serous 20 cc/24H. LUNGS: Clear to auscultation bilaterally. No wheezing appreciated. HEART: No chest wall abnormalities. Regular rate and rhythm with no murmurs appr eciated. ABDOMEN: Abdomen is soft NT/ND. Edema much improved. Incision intact, umbilicus viable. SHANTE serous light 20cc/ 24 H Vital Signs Vital Signs Date Time Temp Pulse Resp B/P (MAP) Pulse Ox O2 Delivery O2 Flow Rate FiO2 11/23/19 06:00 99.6 86 16 112/59 (76) 95 Room Air 11/21/19 22:00 I&Os I&O- Last 24 Hours up to 6 AM 11/23/19 05:59 Intake Total 2090 ml Output Total 840 ml Balance 1250 ml Laboratory Data Labs 24H Laboratory Tests 2 11/23/19 06:32: Immature Granulocyte % (Auto) 0.8, Neutrophils (%) (Auto) 64.8, Lymphocytes (%) (Auto) 22.9L, Monocytes (%) (Auto) 8.5H, Eosinophils (%) (Auto) 2.8, Basophils (%) (Auto) 0.2, Neutrophils # (Auto) 9.8H, Lymphocytes # (Auto) 3.5, Monocytes # (Auto) 1.3H, Eosinophils # (Auto) 0.4, Basophils # (Auto) 0.0, Nucleated Red Blood Cells % (auto) 0.0, Anion Gap 6L, Glomerular Filtration Rate > 60.0, Calcium Level 8.6 CBC/BMP Laboratory Tests 11/23/19 06:32 Microbiology Microbiology 11/22/19 Blood Culture - Preliminary, Resulted No growth after 24 hours . All specim... Impression S/p Right breast reconstruction with TRAM flap POD 4. Improving. Continue with antibiotics. Blood cultures pending (negative after 24H) WBC elevation likely reactive, will follow. Increase activity today. Tolerating diet. Continue with flap monitoring and SHANTE monitoring. Plan / VTE VTE Prophylaxis Ordered?: Yes KATHIE PEDERSEN DO Nov 23, 2019 09:30
[2019-11-23 22:00] VITALS: BP 111/59
[2019-11-24] MEDS: ceFAZolin SOD 1 GM in D5W MINI-BAG PLUS 50 ML IV SCH ×3 (02:34→17:32)
[2019-11-24 06:00] VITALS: BP 115/61
[2019-11-24 06:34] LABS: BASO % 0.2 % (0.0-1.0); EOS # 0.5 10^3/uL (0.0-0.5); EOS % 3.9 % (0.0-3.0); HEMATOCRIT 30.5 % (36.0-47.0); HEMOGLOBIN 10.2 g/dl (12.0-15.5); LYMPH % 24.2 % (24.0-44.0); MEAN CORPUSCULAR HGB CONC 33.4 g/dl (32.0-36.5); MEAN CORPUSCULAR VOLUME 89.7 fl (80.0-96.0); MONO # 1.2 10^3/uL (0.0-0.8); MONO % 9.4 % (0.0-5.0); NEUTROPHILS # 7.5 10^3/uL (1.5-8.5); NEUTROPHILS % 61.5 % (36.0-66.0); PLATELET COUNT, AUTOMATED 432 10^3/uL (150-450); WHITE BLOOD COUNT 12.2 10^3/uL (4.0-10.0)
[2019-11-24 06:57] LABS: ALBUMIN 2.6 GM/DL (3.2-5.2); ALT/SGPT 84 U/L (12-78); BILIRUBIN,TOTAL 0.7 MG/DL (0.2-1.0); BLOOD UREA NITROGEN 5 MG/DL (7-18); CALCIUM LEVEL 8.8 MG/DL (8.5-10.1); CARBON DIOXIDE LEVEL 29 MEQ/L (21-32); CHLORIDE LEVEL 101 MEQ/L (98-107); CREATININE FOR GFR 0.57 MG/DL (0.55-1.30); GLOMERULAR FILTRATION RATE > 60.0 (>58); GLUCOSE, FASTING 103 MG/DL (70-100); POTASSIUM SERUM 3.6 MEQ/L (3.5-5.1); SODIUM LEVEL 136 MEQ/L (136-145); TOTAL PROTEIN 7.4 GM/DL (6.4-8.2)
[2019-11-24 08:59] VITALS: BP 109/63
[2019-11-24] MEDS: FERROUS SULFATE 325MG TAB PO SCH ×2 (09:33→22:09)
--- NOTE | 2019-11-24 09:56 | IPNPDOC ---
Subjective General Date/Time Seen The patient was seen on 11/24/19 at 09:52. Subject Chief Complaint/History The patient is a 49-year-old female admitted with a reason for visit of Malignant Neoplasm, Absence Of Right Breast. s/p TRAM pedicle flap reconstruction to right breast POD 5. Doing well. Pain controlled. Tolerating diet. Current Medications Current Medications Current Medications Medications (Trade) Dose Ordered Sig/Kirsten Route PRN Reason Start Time Stop Time Status Last Admin Dose Admin Acetaminophen (Tylenol Tab) 650 mg Q4HP PRN PO PAIN OR FEVER 11/21/19 10:00 11/22/19 12:01 Acetaminophen (Tylenol Tab) 650 mg Q6HP PRN PO PAIN / FEVER 11/21/19 09:30 11/21/19 09:50 DC Acetaminophen (Tylenol Tab) 650 mg Q6HP PRN PO PAIN / FEVER 11/21/19 09:30 UNV Cefazolin Sodium 1 gm/Dextrose 50 ml @ 100 mls/hr Q8H IV 11/19/19 16:00 11/20/19 20:21 DC 11/20/19 00:32 Cefazolin Sodium 1 gm/Dextrose 50 ml @ 100 mls/hr Q8H IV 11/21/19 10:00 11/24/19 09:34 Cephalexin Monohydrate (Keflex) 500 mg TID PO 11/20/19 09:00 11/20/19 19:58 DC 11/20/19 15:40 Cephalexin Monohydrate (Keflex) 500 mg TID PO 11/20/19 21:00 11/21/19 09:52 DC 11/20/19 20:46 Fentanyl Citrate (Sublimaze) 25 mcg Q5MP PRN IV PAIN LEVEL 5-10 11/19/19 14:30 11/19/19 15:23 DC 11/19/19 14:28 Ferrous Sulfate (Ferrous Sulfate) 325 mg BID PO 11/20/19 09:00 11/24/19 09:33 Ketorolac Tromethamine (ToRADol) 10 mg Q4H PRN PO MILD PAIN (PS 1-4) 11/19/19 15:15 11/21/19 09:27 DC 11/20/19 20:47 Lactated Ringer's 1,000 ml @ 75 mls/hr [id number] IV 11/19/19 15:00 11/20/19 18:19 DC 11/20/19 06:06 Lactated Ringer's 1,000 ml @ 100 mls/hr Q10H IV 11/19/19 14:30 11/19/19 15:30 DC Morphine Sulfate (Morphine Sulfate Inj) 4 mg Q4H PRN IV SEVERE PAIN (PS 8-10) 11/19/19 15:00 11/19/19 17:02 Ondansetron HCl (ZOFRAN INJection) 4 mg Q4H PRN IV NAUSEA 11/19/19 15:15 11/19/19 17:17 Ondansetron HCl (ZOFRAN INJection) 4 mg Q4HP PRN IV NAUSEA OR VOMITING 11/19/19 14:30 11/19/19 15:30 DC Oxycodone HCl (Roxicodone, Oxyir) 5 mg ASDIRECTED PRN PO PAIN LEVEL 1-4 11/19/19 14:30 11/19/19 15:30 DC Oxycodone HCl (Roxicodone, Oxyir) 10 mg Q4HP PRN PO SEVERE PAIN (PS 8-10) 11/21/19 10:00 Oxycodone/ Acetaminophen (Percocet 5mg/ 325mg Tablet) 2 tab Q6H PRN PO MODERATE PAIN (PS 5-7) 11/19/19 15:15 11/21/19 09:50 DC 11/20/19 15:40 Allergies Coded Allergies: No Known Allergies (Unverified , 11/19/19) Objective Physical Examination Examination GENERAL APPEARANCE:Patient seen, laying in bed, awake, alert, and oriented. Comfortable, in no acute distress. SKIN: Warm and moist. BREAST: Flap overall viable, Lateral part with partial skin necrosis- dusky. Medially along the incision small area of dusky skin. cap refil <2 sec on the m iddle of the flap. Abdominal incision healing well. Small amount ecchymosis along the incision. Completely intact. Umbilicus viable. LUNGS: Clear to auscultation bilaterally. No wheezing appreciated. HEART: No chest wall abnormalities. Regular rate and rhythm with no murmurs appreciated. ABDOMEN: Abdomen is soft, NT/ND Vital Signs Vital Signs Date Time Temp Pulse Resp B/P (MAP) Pulse Ox O2 Delivery O2 Flow Rate FiO2 2/11/20 08:59 98.9 88 18 109/63 (78) 99 Room Air 11/21/19 22:00 I&Os I&O- Last 24 Hours up to 6 AM 11/24/19 06:00 Intake Total 1180 ml Output Total 1635 ml Balance -455 ml Laboratory Data Labs 24H Laboratory Tests 2 11/24/19 05:38: Immature Granulocyte % (Auto) 0.8, Neutrophils (%) (Auto) 61.5, Lymphocytes (%) (Auto) 24.2, Monocytes (%) (Auto) 9.4H, Eosinophils (%) (Auto) 3.9H, Basophils (%) (Auto) 0.2, Neutrophils # (Auto) 7.5, Lymphocytes # (Auto) 3.0, Monocytes # (Auto) 1.2H, Eosinophils # (Auto) 0.5, Basophils # (Auto) 0.0, Nucleated Red Blood Cells % (auto) 0.0, Anion Gap 6L, Glomerular Filtration Rate > 60.0, Calcium Level 8.8, Total Bilirubin 0.7#, Aspartate Amino Transf (AST/SGOT) 84H, Alanine Aminotransferase (ALT/SGPT) 84H, Alkaline Phosphatase 127H, Total Protein 7.4, Albumin 2.6L, Albumin/Globulin Ratio 0.54L CBC/BMP Laboratory Tests 11/24/19 05:38 Microbiology Microbiology 11/22/19 Blood Culture - Preliminary, Resulted No Growth after 48 hours. All Specime... Impression S/p TRAM flap reconstruction to Right breast. Improving. WBC improving, down from yesterday. Continue with flap monitoring, Nitro paste today Ambulate Reg diet. Continue with antibiotics. Plan / VTE VTE Prophylaxis Ordered?: Yes KATHIE PEDERSEN DO Nov 24, 2019 09:56
--- NOTE | 2019-11-24 11:38 | IPNPDOC ---
Subjective Date Seen The patient was seen on 11/24/19. Subjective Chief Complaint/HPI Patient is comfortable, much better than yesterday hoping to stay one or 2 more days in the hospital. She is afebrile, and under control with meds General: Denies: ROS Unobtainable, Chills, Night Sweats, Fatigue, Malaise, N ormal Appetite, Other Symptoms Constitutional: Denies: Chills, Fever, Malaise, Night Sweats, Weakness, Fatigue, Weight Loss, Lethargy, Other Eyes: Denies: Pain, Vision change, Conjunctivae inflammation, Eyelid inflammation, Redness, Other Pulmonary: Denies: Dyspnea, Cough, Pleuritic Chest Pain, Other Symptoms Cardiovascular: Denies: Chest Pain, Palpitations, Orthopnea, Paroxysmal Noc. Dyspnea, Edema, Lt Headedness, Other Symptoms Gastrointestinal: Denies: Nausea, Vomiting, Abdominal Pain, Diarrhea, Constipation, Melena, Hematochezia, Other Symptoms Musculoskeletal: Denies: Neck Pain, Back Pain, Shoulder Pain, Arm Pain, Hand Pain, Leg Pain, Foot Pain, Joint Pain, Muscle Pain, Spasms, Other Symptoms Neurological: Denies: Weakness, Numbness, Incoordination, Change in speech, Confusion, Seizures, Other Symptoms Objective Physical Examination ENT Exam: Positive: Atraumatic, Mucous membr. moist/pink Neck Exam: Positive: Supple Chest Exam: Positive: Clear to auscultation, Normal air movement Heart Exam: Positive: Rate Normal Abdomen Exam: Positive: Normal bowel sounds, Other Extremity Exam: Positive: Normal pulses Skin Exam: Positive: Nl turgor and temperature Assessment /Plan Problems (1) S/P breast reconstruction, right Status: Acute Problem Text: Status post right breast reconstruction surgery with the TRAM procedure Will DC Toradol secondary to mild oozing from the wound Start Tylenol 650 mg by mouth every 4 hours when necessary and oxycodone 10 mg by mouth every 4 hours when necessary alternating . 2 units of PRBCs were transfused with improved H&H 10.7 and 33.1 Patient's hemoglobin is 10.2, hematocrit 30.5 and WBC count has significantly decreased to 12.2, and patient is afebrile , Most likely with discharge patient tomorrow. If she is clinically stable and able to take care of for herself. (2) Breast cancer Status: Chronic Problem Text: As per home meds Plan/VTE VTE Prophylaxis Ordered?: Yes VS, I&O, 24H, Fishbone Vital Signs/I&O Vital Signs Date Time Temp Pulse Resp B/P (MAP) Pulse Ox O2 Delivery O2 Flow Rate FiO2 11/24/19 08:59 98.9 88 18 109/63 (78) 99 Room Air 11/21/19 22:00 I&O- Last 24 Hours up to 6 AM 11/24/19 06:00 Intake Total 1180 ml Output Total 1635 ml Balance -455 ml Laboratory Data 24H LABS Laboratory Tests 2 11/24/19 05:38: Immature Granulocyte % (Auto) 0.8, Neutrophils (%) (Auto) 61.5, Lymphocytes (%) (Auto) 24.2, Monocytes (%) (Auto) 9.4H, Eosinophils (%) (Auto) 3.9H, Basophils (%) (Auto) 0.2, Neutrophils # (Auto) 7.5, Lymphocytes # (Auto) 3.0, Monocytes # (Auto) 1.2H, Eosinophils # (Auto) 0.5, Basophils # (Auto) 0.0, Nucleated Red Blood Cells % (auto) 0.0, Anion Gap 6L, Glomerular Filtration Rate > 60.0, Calcium Level 8.8, Total Bilirubin 0.7#, Aspartate Amino Transf (AST/SGOT) 84H, Alanine Aminotransferase (ALT/SGPT) 84H, Alkaline Phosphatase 127H, Total Protein 7.4, Albumin 2.6L, Albumin/Globulin Ratio 0.54L CBC/BMP Laboratory Tests 11/24/19 05:38 Microbiology Microbiology 11/22/19 Blood Culture - Preliminary, Resulted No Growth after 48 hours. All Specime... ELISABET RAMOS MD Nov 24, 2019 11:38
[2019-11-24 13:36] VITALS: BP 108/63
[2019-11-24] MEDS: NITROGLYCERIN 2% OINT 1 GM *U/D* PKT TOP SCH ×2 (13:46→22:09)
[2019-11-24 16:08] VITALS: BP 111/62
[2019-11-24 22:00] VITALS: BP 110/59
[2019-11-25] MEDS: ceFAZolin SOD 1 GM in D5W MINI-BAG PLUS 50 ML IV SCH ×2 (01:02→10:19)
[2019-11-25 05:30] VITALS: BP 105/59
[2019-11-25] MEDS: ACETAMINOPHEN TAB 650MG DOSE (2X325MG) PO PRN (05:30)
[2019-11-25] MEDS: NITROGLYCERIN 2% OINT 1 GM *U/D* PKT TOP SCH (05:30)
[2019-11-25 06:00] VITALS: BP 110/59
[2019-11-25 08:00] VITALS: BP_SYST 112; BP_SYST 92; BP_DIAS 70
[2019-11-25] MEDS: FERROUS SULFATE 325MG TAB PO SCH (08:23)
[2019-11-25 09:00] VITALS: BP_SYST 112; BP_SYST 92; BP_DIAS 70
--- NOTE | 2019-11-25 13:06 | IPNPDOC ---
Subjective General Date/Time Seen The patient was seen on 11/25/19 at 13:00. Subject Chief Complaint/History She patient is a 49-year-old female admitted with a reason for visit of Malignant Neoplasm, Absence Of Right Breast. s/p TRAM pedicle flap reconstruction to right breast POD 6. Doing well. Pain controlled. Tolerating diet. Flap is warm. Compliant with Nitrobid paste. Current Medications Current Medications Current Medications Medications (Trade) Dose Ordered Sig/Kirsten Route PRN Reason Start Time Stop Time Status Last Admin Dose Admin Acetaminophen (Tylenol Tab) 650 mg Q4HP PRN PO PAIN OR FEVER 11/21/19 10:00 11/25/19 05:30 Acetaminophen (Tylenol Tab) 650 mg Q6HP PRN PO PAIN / FEVER 11/21/19 09:30 11/21/19 09:50 DC Acetaminophen (Tylenol Tab) 650 mg Q6HP PRN PO PAIN / FEVER 11/21/19 09:30 UNV Cefazolin Sodium 1 gm/Dextrose 50 ml @ 100 mls/hr Q8H IV 11/19/19 16:00 11/20/19 20:21 DC 11/20/19 00:32 Cefazolin Sodium 1 gm/Dextrose 50 ml @ 100 mls/hr Q8H IV 11/21/19 10:00 11/25/19 10:19 Cephalexin Monohydrate (Keflex) 500 mg BID PO 11/25/19 21:00 Cephalexin Monohydrate (Keflex) 500 mg TID PO 11/20/19 09:00 11/20/19 19:58 DC 11/20/19 15:40 Cephalexin Monohydrate (Keflex) 500 mg TID PO 11/20/19 21:00 11/21/19 09:52 DC 11/20/19 20:46 Fentanyl Citrate (Sublimaze) 25 mcg Q5MP PRN IV PAIN LEVEL 5-10 11/19/19 14:30 11/19/19 15:23 DC 11/19/19 14:28 Ferrous Sulfate (Ferrous Sulfate) 325 mg BID PO 11/20/19 09:00 11/25/19 08:23 Ketorolac Tromethamine (ToRADol) 10 mg Q4H PRN PO MILD PAIN (PS 1-4) 11/19/19 15:15 11/21/19 09:27 DC 11/20/19 20:47 Lactated Ringer's 1,000 ml @ 75 mls/hr [id number] IV 11/19/19 15:00 11/20/19 18:19 DC 11/20/19 06:06 Lactated Ringer's 1,000 ml @ 100 mls/hr Q10H IV 11/19/19 14:30 11/19/19 15:30 DC Morphine Sulfate (Morphine Sulfate Inj) 4 mg Q4H PRN IV SEVERE PAIN (PS 8-10) 11/19/19 15:00 11/19/19 17:02 Nitroglycerin (Nitrobid 2%) 1 Inch to be Rubbed in... Q8H TOP 11/24/19 14:00 11/25/19 05:30 Ondansetron HCl (ZOFRAN INJection) 4 mg Q4H PRN IV NAUSEA 11/19/19 15:15 11/19/19 17:17 Ondansetron HCl (ZOFRAN INJection) 4 mg Q4HP PRN IV NAUSEA OR VOMITING 11/19/19 14:30 11/19/19 15:30 DC Oxycodone HCl (Roxicodone, Oxyir) 5 mg ASDIRECTED PRN PO PAIN LEVEL 1-4 11/19/19 14:30 11/19/19 15:30 DC Oxycodone HCl (Roxicodone, Oxyir) 10 mg Q4HP PRN PO SEVERE PAIN (PS 8-10) 11/21/19 10:00 Oxycodone/ Acetaminophen (Percocet 5mg/ 325mg Tablet) 2 tab Q6H PRN PO MODERATE PAIN (PS 5-7) 11/19/19 15:15 11/21/19 09:50 DC 11/20/19 15:40 Allergies Coded Allergies: No Known Allergies (Unverified , 11/19/19) Objective Physical Examination Examination GENERAL APPEARANCE:Patient seen, laying in bed, awake, alert, and oriented. Comfortable, in no acute distress. SKIN: Warm and moist. BREAST: Incision intact. Ischemia stable, non expanding. Flap warm, cap ref <2 sec. LUNGS: Clear to auscultation bilaterally. No wheezing appreciated. HEART: No chest wall abnormalities. Regular rate and rhythm with no murmurs appreciated. ABDOMEN: Abdomen is Soft NT/ND. Umbilicus viable. Incision intact. SHANTE drains serosanguinous, light color. Vital Signs Vital Signs Date Time Temp Pulse Resp B/P (MAP) Pulse Ox O2 Delivery O2 Flow Rate FiO2 11/25/19 09:00 97.6 76 22 112/70 96 Room Air 11/21/19 22:00 I&Os I&O- Last 24 Hours up to 6 AM 11/25/19 05:59 Intake Total 1270 ml Output Total 605 ml Balance 665 ml Laboratory Data Microbiology Microbiology 11/22/19 Blood Culture - Preliminary, Resulted No Growth after 72 hours. All specime... Impression S/p Right breast reconstruction with Pedical TRAM flap. Improving. Stable for discharge At home: apply Nitrobid to the flap 3 times a day. Instructions given to patient. Dressing changed today. Monitor and document SHANTE output. No heavy lifting. Regular diet. Keep on antibiotics for another 2 days. F/up with plastic surgery on Saturday11/27/19 at 10:15 am. Plan / VTE VTE Prophylaxis Ordered?: Yes KATHIE PEDERSEN DO Nov 25, 2019 13:06
[2019-11-25] MEDS ORDERED: FERR325T18 PO (13:08)
[2019-11-25] MEDS ORDERED: CEPH500C PO (13:08)
[2019-11-25] MEDS ORDERED: OXYC-517 PO (13:08)
[2019-11-25 13:53] VITALS: BP 108/78
--- NOTE | 2019-11-25 14:51 | DS.PDOC ---
Discharge Summary General Date of Admission Nov 19, 2019 at 05:59 Date of Discharge 11/25/19 Discharge Summary PROCEDURES PERFORMED DURING STAY: None. ADMITTING DIAGNOSES: 1. Status post right breast reconstruction surgery. DISCHARGE DIAGNOSES: 1. Status post right breast reconstruction surgery, history of breast cancer. COMPLICATIONS/CHIEF COMPLAINT: Malignant Neoplasm, Absence Of Right Breast. HISTORY OF PRESENT ILLNESS: 49 years old lady with past medical history of seasonal allergies, breast cancer, status post right mastectomy, left ovary removed was brought to or by plastic surgery for right breast reconstruction surgery with Dr. richardson. Patient transferred to medical floor after she was stabilized in postop care unit. Patient offers no new complaints. Comfortable in no apparent distress. is at bedside and is at bedside as well. HOSPITAL COURSE: Edwin was admitted to medical floor after she came from PCU. Patient was seen daily by Dr. Richardson and dressings were changed. She has remained afebrile, asymptomatic. WBC count at one time slightly elevated as a reactive leukocytosis and also had a fever initially which was postop fever right now. Patient is asymptomatic, afebrile. WBC count is 12,000 and she was seen by today and she will be discharged home on by mouth cephalexin and pain medication and follow with plastic surgery as it as an outpatient as per schedule. DISCHARGE MEDICATIONS: Please see below. ALLERGIES: Please see below. PHYSICAL EXAMINATION ON DISCHARGE: VITAL SIGNS: Please see below. GENERAL: Within normal limits HEENT: Lety extraocular muscles intact NECK: Supple CARDIOVASCULAR EXAMINATION: S1, S2, regular RESPIRATORY EXAMINATION: Clear to A&P ABDOMINAL EXAMINATION: , Soft, nontender, bowel sounds present EXTREMITIES: No clubbing, cyanosis, edema SKIN: Normal dressing at the right breast and abdomen NEUROLOGICAL EXAMINATION: . No focal motor sensory deficit PSYCHIATRIC EXAMINATION: Normal LABORATORY DATA: Please see below. IMAGING: None PROGNOSIS: Good ACTIVITY: As tolerated. DIET: As tolerated DISCHARGE PLAN: Follow with plastic surgery as an outpatient DISPOSITION: . DISCHARGE INSTRUCTIONS: 1. As per discharge instruction. ITEMS TO FOLLOWUP ON ON OUTPATIENT: 1. Follow-up with plastic surgery. DISCHARGE CONDITION: Stable. TIME SPENT ON DISCHARGE: 25 minutes. Vital Signs/I&Os Vital Signs Date Time Temp Pulse Resp B/P (MAP) Pulse Ox O2 Delivery O2 Flow Rate FiO2 11/25/19 13:53 99.5 80 20 108/78 (88) 95 Room Air 11/21/19 22:00 I&O- Last 24 Hours up to 6 AM 11/25/19 06:00 Intake Total 1570 ml Output Total 25 ml Balance 1545 ml Microbiology Microbiology 11/22/19 Blood Culture - Preliminary, Resulted No Growth after 72 hours. All specime... Discharge Medications Scheduled Cephalexin (Cephalexin) 500 Mg Capsule, 500 MG PO BID Cetirizine HCl/Pseudoephedrine (Zyrtec-D Tablet) 1 Each Tab.er.12h, 1 TAB PO PRN, (Reported) Ferrous Sulfate (Ferrous Sulfate) 325 Mg Tablet, 325 MG PO BID Scheduled PRN Acetaminophen (Acetaminophen 8 Hour) 650 Mg Tablet.er, 650 MG PO PRN PRN for PAIN, (Reported) Oxycodone HCl (Oxycodone HCl) 5 Mg Tablet, 10 MG PO Q4HP PRN for SEVERE PAIN (PS 8-10) Allergies Coded Allergies: No Known Allergies (Unverified , 11/19/19) ELISABET RAMOS MD Nov 25, 2019 14:51
[2019-11-25] MEDS ORDERED: NITR2OI TOP (18:13)
[2019-11-25] MEDS ORDERED: CEPHALEXIN 500 MG CAP PO SCH (21:00)
== END 2019-11-25 15:15 | disposition home or self-care (01) | DRG 583 ==
LOC: M OR 05:59 → EDSTATUS 07:30 → M MS5PR 15:35
PROVIDERS: ADMIT Plastic Surgery Surgery of the Hand; ATTEND Plastic Surgery Surgery of the Hand
PROC: 0KXL0Z6 Transfer Left Abdomen Muscle, Transverse Rectus Abdominis Myocutaneous Flap, Open Approach (ICD-10-PCS; principal; 2019-11-19 07:30)
DX: Z42.8 Encounter for other plastic and reconstructive surgery following medical procedure or healed injury (principal); C50.211 Malignant neoplasm of upper-inner quadrant of right female breast

== ENCOUNTER → 2019-12-15 | Outpatient (CLI) | payer OTHER ==
[~2019-12-15] MED LIST changes: +CEPH500C PO; +FERR325T18 PO; +NITR2OI TOP; +OXYC-517 PO; +QC A650T3 PO
--- NOTE | 2019-12-15 20:33 | REP ---
LUMBOSACRAL SPINE, AP AND LATERAL: HISTORY: Low back pain. AP and lateral views of the lumbosacral spine are performed. No compression fracture is seen. There is straightening of the normal lumbar lordosis. This could indicate spasm. Tiny spurs are seen of L3 through L5. There is very mild disc space narrowing a L2-3 and L5-S1. Posterior elements are intact. There is slight curvature toward the left. There is mild sclerosis along the sacroiliac joints. IMPRESSION: Very mild degenerative changes. Straightening of the normal lumbar lordosis as well as slight curvature toward the left could indicate muscle spasm. Electronically Signed by Robin Bell MD 12/16/2019 03:51 P
== END ==
LOC: M RAD 17:21
PROVIDERS: ATTEND Plastic Surgery Surgery of the Hand
DX: M54.5 Low back pain (principal); M51.36 Other intervertebral disc degeneration, lumbar region

== ENCOUNTER 2019-12-22 07:31 | Day surgery (SDC) | payer OTHER ==
[~2019-12-22] VITALS: Ht 160 cm; Wt 66.6 kg
[~2019-12-22 07:31] MED LIST changes: +LIDOCAINE 2% INJ 100 MG/5 ML SDV (FOR ANES.) As Ordered ONE; +LR 1,000 ML IV ONE; +ONDANSETRON 4MG/2ML VIAL (J2405) As Ordered ONE; +VITA100T59 PO; +ceFAZolin SOD 1 GM in D5W MINI-BAG PLUS 50 ML IV ONE; +dexameTHASONE 4 MG/ML 1ML VIAL (J1100) As Ordered ONE; +propofoL 200 MG/20 ML VIAL As Ordered ONE
[2019-12-22] MEDS ORDERED: MIDAZOLAM INJ 2 MG/2 ML VIAL (J2250) As Ordered ONE (08:14)
[2019-12-22] MEDS ORDERED: fentaNYL 100 MCG/2 ML INJECTION (J3010) As Ordered ONE ×2 (08:14→10:52)
[2019-12-22] MEDS ORDERED: ACETAMINOPHEN 1000MG 100ML IV BTL (OFIRMEV) (J0131 PER 10MG) As Ordered ONE (09:36)
[2019-12-22] MEDS ORDERED: LACRILUBE (AKWA TEARS) OPHTH OINT 3.5 GM As Ordered ONE (11:08)
--- NOTE | 2019-12-22 11:37 | POST-OPPD ---
Postoperative Procedure Note Date Of Procedure: Dec 22, 2019 PREOPERATIVE DIAGNOSIS: Right reconstructed breast tissue necrosis. POSTOPERATIVE DIAGNOSIS: same FINDINGS: Right breast s/p TRAM reconstruction with tissue necrosis right lateral part. PROCEDURE: Debridement Right breast necrotic tissue, revision right breast flap reconstruction. SURGEON: Dr Pedersen [employer]: Dr Espino ANESTHESIA: General SPECIMENS: Right breast necrotic tissue, Right breast culture. ESTIMATED BLOOD LOSS: 100 cc REPLACED: none DRAINS: 10 mm SHANTE drain COMPLICATIONS: none POSTOPERATIVE CONDITION: stable Dict [id number] KATHIE PEDERSEN DO Dec 22, 2019 11:37
[2019-12-22] MEDS ORDERED: OXYC1TAB23 PO (11:44)
[2019-12-22] MEDS: PERCOCET 5MG/325MG TAB PO PRN ×2 (11:53→16:55)
[2019-12-22] MEDS ORDERED: PERCOCET 5MG/325MG TAB As Ordered ONE ×2 (11:53→16:53)
[2019-12-22] MEDS ORDERED: fentaNYL 100 MCG/2 ML INJECTION (J3010) IV PRN (12:00)
[2019-12-22] MEDS ORDERED: LR 1,000 ML IV SCH (12:00)
[2019-12-22] MEDS ORDERED: ONDANSETRON 4MG/2ML VIAL (J2405) IV PRN (12:00)
[2019-12-22 17:00] VITALS: BP 122/59
--- NOTE | 2019-12-23 12:44 | RO ---
DATE OF OPERATION: 12/22/2019 PREOPERATIVE DIAGNOSIS: Right reconstructive breast tissue necrosis. POSTOPERATIVE DIAGNOSIS: Right reconstructive breast tissue necrosis. PROCEDURE: Debridement of right breast necrotic tissue to vision right breast flap reconstruction. ATTENDING SURGEON: Dr. Richardson [employer]ER [employer]: Dr. Espino ANESTHESIA: General. SPECIMENS: Right breast necrotic tissue, right breast culture. ESTIMATED BLOOD LOSS: 100 mL. No blood replacement needed. One 10 mm David-Benavides drain. No complications. Postoperative condition is stable. DESCRIPTION OF PROCEDURE: This is a 49-year-old female who has a distant, about 4 years ago, [place]. She was reconstructed 6 weeks ago with TRAM flap developed superficial necrosis on lateral portion of her flap right lateral was treated conservatively initially and no we are ready to dissect the necrotic tissue. There are no signs of infection. The patient is scheduled for resection and revision of the right flap reconstruction today. All risks and benefits and alternatives discussed with the patient in detail, and she is ready to proceed. The day of surgery she was brought into the operating room, placed in supine position and preoperative antibiotics were given. Sequential stockings placed on the lower calves. General anesthesia was induced. She was prepped and draped in the usual sterile fashion. We started our procedure by taking a culture from the opening that she had along the lateral portion of the incision. Then, necrotic tissue was identified. It is about a third quarter of the skin that was on the lateral portion of the flap. The rest of the flap was in very good perfusion. So, dissection was carried out. The skin eschar was removed. Also, fat necrosis was identified and sharply debrided. All of the tissue was sent to pathology. Then, we undermined the flaps again and examined the flap. It is in good perfusion. So, it was disconnected on the inferior portion of the incision. Therefore, we were able to rotate it slightly so primary closure was achieved using interrupted #0 Vicryl sutures and #3-0 Monocryl sutures. We used the suction dressing for the wound vacuum-assisted closure (VAC) portable topical dressing for the inferior and lateral portion in order to control the edema on that right breast. Also, we have one 10 mm David-Benavides drain placed through a separate stab incision and placed in the lateral portion of the breast. At all times the remaining flap is in good perfusion. The patient is extubated in the operating room and transferred to the recovery room in stable condition
== END 2019-12-22 17:09 | disposition home or self-care (01) ==
LOC: M SDC 07:31
PROVIDERS: ATTEND Plastic Surgery Surgery of the Hand
DX: T85.898A Other specified complication of other internal prosthetic devices, implants and grafts, initial encounter (principal); Y81.2 Prosthetic and other implants, materials and accessory general- and plastic-surgery devices associated with adverse incidents; N64.1 Fat necrosis of breast; C50.211 Malignant neoplasm of upper-inner quadrant of right female breast; Z90.11 Acquired absence of right breast and nipple; D64.9 Anemia, unspecified; R51 Headache; Z87.440 Personal history of urinary (tract) infections; Z92.21 Personal history of antineoplastic chemotherapy; Z79.899 Other long term (current) drug therapy
CPT/HCPCS: 19380; 81025; 87070; 87075; 87076; 87077; 87186; 87205; 88305; J0131; J0690; J1100; J2250; J2405; J3010

== ENCOUNTER → 2020-07-28 | Outpatient (CLI) | payer OTHER ==
[~2020-07-28] MED LIST changes: +AZEL23SP NS; -LIDOCAINE 2% INJ 100 MG/5 ML SDV (FOR ANES.) As Ordered ONE; -LR 1,000 ML IV ONE; -ONDANSETRON 4MG/2ML VIAL (J2405) As Ordered ONE; +OXYC1TAB23 PO; -ceFAZolin SOD 1 GM in D5W MINI-BAG PLUS 50 ML IV ONE; -dexameTHASONE 4 MG/ML 1ML VIAL (J1100) As Ordered ONE; -propofoL 200 MG/20 ML VIAL As Ordered ONE
== END ==
LOC: M LABSMTC 13:32
PROVIDERS: ATTEND Anesthesiology
DX: Z01.812 Encounter for preprocedural laboratory examination (principal); Z20.828 Contact with and (suspected) exposure to other viral communicable diseases
CPT/HCPCS: C9803; U0003

== ENCOUNTER 2020-08-02 07:30 | Observation (INO) | payer OTHER ==
[~2020-08-02] VITALS: Ht 160 cm; Wt 70.7 kg
[~2020-08-02 07:30] MED LIST changes: +LIDOCAINE 2% W/EPINEPHRINE 20ML VIAL **PRES FREE As Ordered ONE; +LR 1,000 ML IV ONE; +ceFAZolin SOD 1 GM in D5W MINI-BAG PLUS 50 ML IV ONE
[2020-08-02] MEDS ORDERED: propofoL 200 MG/20 ML VIAL As Ordered ONE (08:20)
[2020-08-02] MEDS ORDERED: fentaNYL 250 MCG/5 ML INJECTION (J3010) As Ordered ONE (08:20)
[2020-08-02] MEDS ORDERED: LIDOCAINE 2% 100MG/5ML SDV (FOR ANES.) As Ordered ONE (08:20)
[2020-08-02] MEDS ORDERED: MIDAZOLAM INJ 2MG/2ML VIAL (J2250 PER 1MG) As Ordered ONE (08:20)
[2020-08-02] MEDS ORDERED: ROCURONIUM BROMIDE 50 MG/5 ML VIAL As Ordered ONE ×2 (08:20→13:03)
[2020-08-02] MEDS ORDERED: ceFAZolin 1GM VIAL (J0690 PER 500MG) As Ordered ONE (09:56)
[2020-08-02] MEDS ORDERED: BUPIVACAINE LIPOSOME/PF 1.3% 20ML VIAL (13.3MG/ML)(EXPAREL)(C9290 PER1MG) As Ordered ONE (10:55)
[2020-08-02] MEDS ORDERED: LIDOCAINE 1% MDV 20ML VIAL As Ordered ONE (10:55)
[2020-08-02] MEDS ORDERED: BACITRACIN PWD 50,000 UNITS VIAL As Ordered ONE (10:56)
[2020-08-02] MEDS ORDERED: EPINEPHrine INJ 1 MG/ML 1ML AMP As Ordered ONE (10:56)
[2020-08-02] MEDS ORDERED: ePHEDrine SULFATE 25 MG/5 ML(5MG/ML) SYRINGE As Ordered ONE (11:58)
[2020-08-02] MEDS ORDERED: TRIAMCINOLONE ACETONIDE SUSP 40 MG/ML VIAL (J3301) As Ordered ONE (12:11)
[2020-08-02] MEDS ORDERED: dexameTHASONE 4 MG/ML 1ML VIAL (J1100 PER 1MG) As Ordered ONE ×2 (12:57→12:58)
[2020-08-02] MEDS ORDERED: ONDANSETRON 4MG/2ML VIAL As Ordered ONE (12:58)
[2020-08-02] MEDS ORDERED: ACETAMINOPHEN 1000MG 100ML IV BTL (OFIRMEV) (J0131 PER 10MG) As Ordered ONE (12:58)
[2020-08-02] MEDS ORDERED: DESFLURANE 240 ML INHALANT As Ordered ONE (13:06)
[2020-08-02] MEDS ORDERED: LIDOCAINE W/EPINEPHRINE 1% 20ML VIAL As Ordered ONE (15:03)
[2020-08-02] MEDS ORDERED: SUGAMMADEX SODIUM 500 MG/5 ML VIAL (BRIDION) As Ordered ONE (15:11)
[2020-08-02] MEDS ORDERED: fentaNYL 100 MCG/2 ML INJECTION (J3010) As Ordered ONE (15:15)
--- NOTE | 2020-08-02 15:44 | POST-OPPD ---
Postoperative Procedure Note Date Of Procedure: Aug 02, 2020 PREOPERATIVE DIAGNOSIS: Right reconstructed breast asymmetry and scar contraction POSTOPERATIVE DIAGNOSIS: same FINDINGS: Contracted scar on the flap right TRAM PROCEDURE: Revision Right breast reconstruction with fat transfer and scar revision. SURGEON: Dr Pedersen ANESTHESIA: general SPECIMENS: scar tissue right breast ESTIMATED BLOOD LOSS: 100cc REPLACED: none DRAINS: none COMPLICATIONS: none POSTOPERATIVE CONDITION: stable Dict:[id number] KATHIE PEDERSEN DO Aug 02, 2020 15:44
[2020-08-02] MEDS ORDERED: PERCOCET 5MG/325MG TAB PO PRN (15:45)
[2020-08-02] MEDS ORDERED: MORPHINE 4 MG/ML 1ML VIAL/SYRINGE (J2270) IV PRN (15:45)
[2020-08-02] MEDS ORDERED: ACETAMINOPHEN TAB 650MG DOSE (2X325MG) PO PRN (15:45)
[2020-08-02] MEDS ORDERED: ONDANSETRON 4MG/2ML VIAL IV PRN ×3 (15:45→18:00)
[2020-08-02] MEDS ORDERED: LR 1,000 ML IV SCH ×2 (16:00→18:00)
[2020-08-02] MEDS ORDERED: diphenhydrAMINE 50MG/ML VIAL (J1200) IV PRN (16:00)
[2020-08-02] MEDS ORDERED: fentaNYL 100 MCG/2 ML INJECTION (J3010) IV PRN ×2 (16:00→18:00)
[2020-08-02] MEDS ORDERED: SCOPOLAMINE 1MG TRANSDERMAL PATCH As Ordered ONE (16:20)
[2020-08-02] MEDS ORDERED: METOCLOPRAMIDE INJ 10MG/2ML VIAL (J2765 PER 1) IV SCH (16:20)
[2020-08-02] MEDS ORDERED: SCOPOLAMINE 1MG TRANSDERMAL PATCH TOP ONE (17:00)
[2020-08-02] MEDS: LR 1,000 ML IV SCH (17:22)
[2020-08-02 17:30] VITALS: BP 142/74
[2020-08-02 18:00] VITALS: BP 140/74
[2020-08-02 19:00] VITALS: BP 128/69
[2020-08-02 20:00] VITALS: BP 118/57
[2020-08-02] MEDS: ceFAZolin SOD 1 GM in D5W MINI-BAG PLUS 50 ML IV SCH (20:31)
[2020-08-02 21:00] VITALS: BP 116/59
[2020-08-02 22:00] VITALS: BP 115/57
[2020-08-03] MEDS: LR 1,000 ML IV SCH (00:21)
[2020-08-03 02:00] VITALS: BP 102/52
[2020-08-03] MEDS: ceFAZolin SOD 1 GM in D5W MINI-BAG PLUS 50 ML IV SCH ×2 (04:38→12:06)
[2020-08-03 06:00] VITALS: BP 97/54
--- NOTE | 2020-08-03 09:55 | IPNPDOC ---
Subjective General Date Seen: Aug 03, 2020 Subject Chief Complaint/History The patient is a 49-year-old female admitted with a reason for visit of Malignant Neoplasm Right Breast,Acquired Absence... Patient s/p Right breast reconstruction revision POD 1. She has several episodes of nausea. This morning feeling better. Tolerating clear liquid. Ambulating. Pain controlled with Tylenol. Current Medications Current Medications Current Medications Medications (Trade) Dose Ordered Sig/Kirsten Route PRN Reason Start Time Stop Time Status Last Admin Dose Admin Acetaminophen (Tylenol Tab) 650 mg Q6HP PRN PO MILD PAIN (PS 1-4) 08/02/20 15:45 Cefazolin Sodium 1 gm/Dextrose 50 ml @ 100 mls/hr Q8H IV 08/02/20 20:00 08/03/20 04:38 Diphenhydramine HCl (Benadryl) 25 mg Q4HP PRN IV PRURITIS ASSOC WITH NARCOTICS 08/02/20 16:00 08/02/20 17:00 DC Fentanyl Citrate (Sublimaze) 25 mcg Q5MP PRN IV PAIN LEVEL 5-10 08/02/20 16:00 08/02/20 17:00 DC Fentanyl Citrate (Sublimaze) 25 mcg Q5MP PRN IV PAIN LEVEL 5-10 08/02/20 18:00 08/02/20 19:00 DC Lactated Ringer's 1,000 ml @ 75 mls/hr [id number] IV 08/02/20 15:44 08/03/20 00:21 Lactated Ringer's 1,000 ml @ 80 mls/hr [id number] IV 08/02/20 16:00 08/02/20 15:57 DC Lactated Ringer's 1,000 ml @ 80 mls/hr [id number] IV 08/02/20 18:00 08/02/20 19:00 DC Metoclopramide HCl (REGLAN INJection) 10 mg ASDIRECTED IV 08/02/20 16:20 08/02/20 18:10 DC Miscellaneous (Unresolved Clarification Entry) SEE LABEL COMMENTS DAILY XX 08/02/20 09:00 08/02/20 16:55 DC Morphine Sulfate (Morphine Sulfate Inj) 4 mg Q4HP PRN IV SEVERE PAIN (PS 8-10) 08/02/20 15:45 Ondansetron HCl (ZOFRAN INJection) 4 mg Q4H PRN IV NAUSEA OR VOMITING 08/02/20 15:45 Ondansetron HCl (ZOFRAN INJection) 4 mg Q4HP PRN IV NAUSEA OR VOMITING 08/02/20 16:00 08/02/20 17:00 DC 08/02/20 15:57 Ondansetron HCl (ZOFRAN INJection) 4 mg Q4HP PRN IV NAUSEA OR VOMITING 08/02/20 18:00 08/02/20 19:00 DC Oxycodone/ Acetaminophen (Percocet 5mg/ 325mg Tablet) 1 tab Q6HP PRN PO MODERATE PAIN (PS 5-7) 08/02/20 15:45 Allergies Coded Allergies: No Known Allergies (Unverified , 12/22/19) Objective Physical Examination Examination GENERAL APPEARANCE:Patient seen, laying in bed, awake, alert, and oriented. Comfortable, in no acute distress. SKIN: Warm and moist. Post op ecchymosis right breast and abdomen. No hematoma. BREAST: Right and left soft, non-tender incisions intact. LUNGS: Clear to auscultation bilaterally. No wheezing appreciated. HEART: No chest wall abnormalities. Regular rate and rhythm with no murmurs appreciated. ABDOMEN: Abdomen is soft, non-tender, non-distended. Incision intact. EXTREMITIES: No edema identified. No calf tenderness. Vital Signs Vital Signs Date Time Temp Pulse Resp B/P (MAP) Pulse Ox O2 Delivery O2 Flow Rate FiO2 08/03/20 06:00 98.5 73 18 97/54 (68) 94 Room Air 08/02/20 16:00 2 I&Os I&O- Last 24 Hours up to 6 AM 08/03/20 05:59 Intake Total 3935 ml Output Total 1400 ml Balance 2535 ml Impression S/p Right reconstructed breast revision Stable for discharge No pressure on the breast Abdominal binder for the abdomen. Ambulate F/up plastic surgery office. Plan / VTE VTE Prophylaxis Ordered?: Yes KATHIE PEDERSEN DO Aug 03, 2020 09:55
[2020-08-03 10:00] VITALS: BP 98/54
--- NOTE | 2020-08-03 15:05 | RO ---
DATE OF OPERATION: 08/02/2020 PREOPERATIVE DIAGNOSIS: Right reconstructed breast asymmetry and scar contraction. POSTOPERATIVE DIAGNOSIS: Right reconstructed breast asymmetry and scar contraction. PROCEDURE: Revision, right breast reconstruction with fat transfer and a scar revision. ATTENDING SURGEON: Radha Richardson DO, FACOS ANESTHESIA: General. SPECIMEN: Scar tissue, right breast. ESTIMATED BLOOD LOSS: 100 mL REPLACEMENT: No replacements. DRAINS: No drains. POSTOP CONDITION: Stable. DESCRIPTION OF PROCEDURE: This is a 49-year-old female, well known to our practice. She had a pedicle TRAM flap reconstruction to the right breast, status post mastectomy done in [place] many years ago. She has developed a contracted scar on the medial and the lateral portion of the flap which diminishes the footprint of the breast, creating the asymmetry. The patient wishes to have it revised. The risks, benefits and alternatives were discussed with the patient. We have opted for a scar revision and also fat transfer to augment the breast. She is not interested in an implant at this point. The risks, benefits and alternatives of the fat transfer were also discussed separately including fat regression and the risk of fat emboli and asymmetry on the donor side. She is ready to proceed. She was marked in the preoperative holding area and then she was brought into the operating room, placed in supine position. Preoperative antibiotics were given. Sequentials were placed on the lower calves. A Mohan introduced without any difficulties with yellow clear urine present. She was prepped and draped in the usual sterile fashion. We started our procedure by making small stab incisions in the lower abdominal incision which also has a keloid midline which is symptomatic. She was made small stab incisions in the lower abdominal incision. Tumescent solution was infiltrated totaling 1500cc throughout the abdominal area. Also, a stab incision in the superior portion of umbilicus was made. Then we used Vaser five-ring probe 3.9 mm at 60% setting for five minutes throughout the abdomen and then suction-assisted lipectomy was done with a 4 mm cannula. The fat was stored in a separate sterile container. We used [employer] device and it was set on vibrate to separate the fat from the liquid. A total of 1200 mL of aspirate was collected. Then we turned our attention to the right breast. The lateral scar was contracted and it was completely excised. The area was slightly undermined to release the contraction using electrocautery with direct vision. The flap was in good vascular condition and then the area was closed with 3-0 Monocryl sutures inverted, creating a smoother lateral shape. Then the medial scar which was also contracted and retracted was excised and elevated. The flap is rearranged medially and closed with interrupted 3-0 Monocryl sutures and then part of the flap was also under tacked medially, de-epithelialized and under tacked medially, creating an additional buffer. Then we infiltrated the fat throughout the breast superiorly and inferiorly, totalling 270cc. The IMF was lowered about a cm to give a symmetrical footprint to the left breast and it filled with fat transfer material without any difficulties and then a running 5-0 plain suture was finished for the breast incisions. Then abdominal incisions were closed with interrupted 4-0 Monocryl sutures. We injected 40 mg of Kenalog diluted with 3 mL of 1% lidocaine with epinephrine into the lower abdominal incision to control the keloid symptoms as well. Then a foam dressing, abdominal binder placed. The breast is dressed with Prineo dressing and the patient is extubated in the operating room without any difficulties, transferred to the recovery room in stable condition. The Mohan was removed in the operating room. MELANIE
== END 2020-08-03 13:23 | disposition home or self-care (01) ==
LOC: M OR 08:36 → UNDOADMIN 08:36 → M OR 08:36 → M MS5PR 17:05 → UNDODISIN 08-03 13:23
PROVIDERS: ADMIT Plastic Surgery Surgery of the Hand; ATTEND Plastic Surgery Surgery of the Hand
DX: N65.0 Deformity of reconstructed breast (principal); L90.5 Scar conditions and fibrosis of skin; Z90.11 Acquired absence of right breast and nipple; Z85.3 Personal history of malignant neoplasm of breast
CPT/HCPCS: 19380; 81025; 88302; 96361; 96365; 96366; C9290; J0131; J0171; J0690; J1100; J2250; J2405; J3010; J3301

== ENCOUNTER → 2021-07-13 | Outpatient (CLI) | payer OTHER ==
[~2021-07-13] MED LIST changes: -LIDOCAINE 2% W/EPINEPHRINE 20ML VIAL **PRES FREE As Ordered ONE; -LR 1,000 ML IV ONE; +[UNRECOGNIZED DRUG - CODE] PO; -ceFAZolin SOD 1 GM in D5W MINI-BAG PLUS 50 ML IV ONE
== END ==
LOC: M LABSMTC 11:13
PROVIDERS: ATTEND Anesthesiology
DX: Z01.812 Encounter for preprocedural laboratory examination (principal); Z20.822 Contact with and (suspected) exposure to COVID-19

== ENCOUNTER 2021-07-18 06:08 | Observation (INO) | payer OTHER ==
[~2021-07-18] VITALS: Ht 160 cm; Wt 67.2 kg
[2021-07-18] VITALS (7 sets, daily range): BP systolic 120–149; BP diastolic 59–82
[~2021-07-18 06:08] MED LIST changes: +LIDOCAINE 1% MDV 20ML VIAL SQ PRN; +LR 1,000 ML IV ONE
[2021-07-18] MEDS ORDERED: FISH1000 PO (06:39)
[2021-07-18] MEDS ORDERED: ceFAZolin SOD 2 GM in IV 1 EA IV ONE (07:00)
[2021-07-18] MEDS ORDERED: LIDOCAINE 1% MDV 20ML VIAL As Ordered ONE ×2 (07:20→07:23)
[2021-07-18] MEDS ORDERED: ceFAZolin 1GM VIAL (J0690 PER 500MG) As Ordered ONE (07:20)
[2021-07-18] MEDS ORDERED: EPINEPHrine INJ 1 MG/ML 1ML AMP As Ordered ONE (07:21)
[2021-07-18] MEDS ORDERED: GENTAMICIN SULF 80MG/2ML VIAL As Ordered ONE (07:21)
[2021-07-18] MEDS ORDERED: BUPIVACAINE LIPOSOME/PF 1.3% 20ML VIAL (13.3MG/ML)(EXPAREL)(C9290 PER1MG) As Ordered ONE (07:22)
[2021-07-18] MEDS ORDERED: LIDOCAINE 2% 100MG/5ML SDV (FOR ANES.) As Ordered ONE (07:27)
[2021-07-18] MEDS ORDERED: ROCURONIUM BROMIDE 50 MG/5 ML VIAL As Ordered ONE ×2 (07:27→09:49)
[2021-07-18] MEDS ORDERED: propofoL 200 MG/20 ML VIAL As Ordered ONE (07:27)
[2021-07-18] MEDS ORDERED: dexameTHASONE 4 MG/ML 1ML VIAL (J1100 PER 1MG) As Ordered ONE (07:27)
[2021-07-18] MEDS ORDERED: ONDANSETRON 4MG/2ML VIAL As Ordered ONE ×2 (07:27→13:22)
[2021-07-18] MEDS ORDERED: MIDAZOLAM INJ 2MG/2ML VIAL (J2250 PER 1MG) As Ordered ONE (07:28)
[2021-07-18] MEDS ORDERED: fentaNYL 250 MCG/5 ML INJECTION (J3010) As Ordered ONE (07:28)
[2021-07-18] MEDS ORDERED: ePHEDrine SULFATE 25 MG/5 ML(5MG/ML) SYRINGE As Ordered ONE ×2 (08:40→11:47)
[2021-07-18] MEDS ORDERED: ACETAMINOPHEN 1000MG 100ML IV BTL (OFIRMEV) (J0131 PER 10MG) As Ordered ONE (09:07)
[2021-07-18] MEDS ORDERED: SUGAMMADEX SODIUM 500 MG/5 ML VIAL (BRIDION) As Ordered ONE (09:07)
[2021-07-18] MEDS ORDERED: HYDROmorphone HCL 2 MG/ML 1ML VIAL As Ordered ONE (09:08)
[2021-07-18] MEDS ORDERED: GLYCOPYRROLATE INJ 0.2 MG/ML 2 ML VIAL As Ordered ONE (11:44)
--- NOTE | 2021-07-18 13:13 | ROOPDOC ---
[facility] Report Of Operation Report of Operation DATE OF PROCEDURE: 07/18/21 Date Of Procedure: Jul 18, 2021 PREOPERATIVE DIAGNOSIS: Disproportion of reconstructed breast. Left breast ptosis. Abdominal scar hypertrophy. POSTOPERATIVE DIAGNOSIS: same PROCEDURE: Revision lower abdominal scar. Left breast mastopexy. Right breast reconstruction revision with fat transfer, 233 gm. Donor site back. SURGEON: Dr Pedersen HANDLING TECH: none ANESTHESIA: general ESTIMATED BLOOD LOSS: 50 cc FINDINGS: Right breast tram flap, loss of volume. Left breast ptosis. Hypertrophic scar lower abdomen. SPECIMENS: lower abdominal scar. Left breast tissue 234 gm COMPLICATIONS: none REPLACED: none DRAINS: 10 mm SHANTE left breast. 15 Fr round lower abdomen POSTOPERATIVE CONDITION: stable DESCRIPTION OF PROCEDURE: This is a [id number]-year-old female who is scheduled for next step of reconstruction for right breast cancer. Patient status post right mastectomy in [place] with reconstruction here with TRAM flap. Patient also had revision of the right side with fat transfer with donor site abdomen before. Now she is interested in revising abdominal scar which has area of hypertrophy and doing mastopexy with small reduction on the left side to match the right side and inject additional fat to the right side to improve the contour. Risks, benefits, and alternatives were discussed with the patient in detail, and she is ready to proceed. The day of surgery, she was marked in the upright position. Preoperative antibiotics given. Informed consent obtained. She was brought into the operating room and placed in supine position. General anesthesia was induced. Patient was placed in the prone position with all bony prominences protected. She was prepped and draped in the usual sterile fashion. Two small stab incisions in the upper and the lower back were carried out with a 15 blade knife. 1000 cc of tumescent solution infiltrated throughout the upper and lower back. Vaser liposuction at 60% power with 3.7 mm 3 ring probe was performed for total of 5 minutes throughout the upper and lower back. It was followed by conventional lower suction liposuction which collected fat in the back table in a large container of PanX. After the liposuction was completed 2 stab incisions were closed with interrupted 4 Monocryl sutures. The fat was left in the back table under sterile conditions to separate with addition of the vibrating system. Patient was placed in supine position. She was prepped and draped in usual sterile fashion. Lower abdominal incision was outlined included the hypertrophic area as well as the right lateral excess tissue. Incision carried out with 10 blade excising the scar tissue completely. The scar was reapproximated with 3-0 Monocryl sutures throughout, 15 Egyptian round drain was placed. The incision was continued to be closed with running 3-0 Monocryl V l ock suture. Then we turned our attention to the breast. Left nipple areolar complex was outlined at 42 mm in diameter. Superior medial pedicle pattern was used to excise excess tissue. Inferior lateral portion of the breast was removed using electrocautery and peek cautery. We undermined superiorly until the pectoralis muscle was identified. Pedicle was stabilized using Peterson scissors. The wound is irrigated with gentamicin solution. Exparel 6 cc was infiltrated throughout the pedicle and the pectoralis major muscle for local block. Pedicle was brought to its new position at 21 cm from sternal notch. Stay suture was placed at the top of the vertical incision with 3-0 Monocryl suture. Vertical limb was closed with interrupted 3-0 Monocryl sutures. Deep 0 Vicryl sutures were placed for contouring of the new breast mound. Inferior tissue was measured and resected creating horizontal scar which was closed with interrupted 3-0 Monocryl sutures as well. Running 3-0 Monocryl V-Loc suture was used to complete the closure. 10 mm David-Benavides drain flat was placed through the lateral portion of horizontal incision. Nipple areolar complex is sutured in place with 3-0, 4-0 Monocryl sutures in interrupted 5-0 plain gut sutures. Then return attention to the right side small stab incision carried out with 11 blade. The fat was prepared on the back table and from the liposu ction fluid. 1 g of Ancef was mixed with the fat. Fat transfer was done with through the superior lateral and inferior stab incisions using blunt needle transfer device. Total of 233 g of fat was transferred in the right side creating good symmetry to the left side. Stab incisions closed with interrupted 4 Monocryl sutures. Prineo dressing was placed throughout lower abdominal incision on the left breast incision. Xeroform to the nipple areolar complex. Bulky dressing, surgical bra and compression binder were placed. Patient extubated in operating room without any difficulties and transferred to recovery room in stable condi tion. KATHIE PEDERSEN DO Jul 18, 2021 13:13
[2021-07-18] MEDS ORDERED: MORPHINE 4 MG/ML 1ML VIAL/SYRINGE (J2270) IV PRN (13:15)
[2021-07-18] MEDS ORDERED: PERCOCET 5MG/325MG TAB PO PRN ×2 (13:15→17:35)
[2021-07-18] MEDS: ONDANSETRON 4MG/2ML VIAL IV PRN ×2 (13:20→17:38)
[2021-07-18] MEDS ORDERED: LR 1,000 ML IV SCH (13:30)
[2021-07-18] MEDS ORDERED: fentaNYL 100 MCG/2 ML INJECTION (J3010) IV PRN (13:30)
[2021-07-18] MEDS ORDERED: HYDROMORPHONE HCL 0.5 MG/ 0.5 ML SYRINGE (J1170 PER 1) IV PRN (13:30)
[2021-07-18] MEDS ORDERED: ONDANSETRON 4MG/2ML VIAL IV PRN (13:30)
[2021-07-18] MEDS ORDERED: oxyCODONE 5MG TAB PO PRN (13:30)
[2021-07-18] MEDS ORDERED: METOCLOPRAMIDE INJ 10MG/2ML VIAL (J2765 PER 1) As Ordered ONE (13:51)
[2021-07-18] MEDS ORDERED: METOCLOPRAMIDE INJ 10MG/2ML VIAL (J2765 PER 1) IV PRN (13:55)
[2021-07-18] MEDS: ACETAMINOPHEN TAB 650MG DOSE (2X325MG) PO PRN (16:46)
[2021-07-18] MEDS: ceFAZolin SOD 1 GM in D5W MINI-BAG PLUS 50 ML IV SCH (16:46)
[2021-07-18] MEDS ORDERED: PROMETHAZINE INJ 25 MG/ML VIAL (J2550) IV PRN (17:35)
[2021-07-19] MEDS: ceFAZolin SOD 1 GM in D5W MINI-BAG PLUS 50 ML IV SCH ×2 (00:50→09:15)
[2021-07-19] MEDS: ACETAMINOPHEN TAB 650MG DOSE (2X325MG) PO PRN (06:03)
[2021-07-19 06:07] VITALS: BP 111/64
[2021-07-19 10:00] VITALS: BP 125/62
--- NOTE | 2021-07-19 11:34 | IPNPDOC ---
Subjective General Date Seen: Jul 19, 2021 Subject Chief Complaint/History The patient is a 50-year-old female admitted with a reason for visit of Deformity Of Reconstructed Breast, Scar Conditions. Patient status post abdominal scar revision left breast mastopexy, and right breast reconstruction with fat transfer donor site back. Postop day 1. Patient is doing well. She had episodes of vomiting last night but now with resolved. She is tolerating regular diet, ambulating to the bathroom. Current Medications Current Medications Current Medications Medications (Trade) Dose Ordered Sig/Kirsten Route PRN Reason Start Time Stop Time Status Last Admin Dose Admin Acetaminophen (Tylenol Tab) 650 mg Q6H PRN PO MILD PAIN (PS 1-4) 07/18/21 13:15 07/19/21 06:03 Cefazolin Sodium 1 gm/Dextrose 50 ml @ 100 mls/hr Q8H IV 07/18/21 17:00 07/19/21 09:15 Fentanyl Citrate (Sublimaze) 25 mcg Q5MP PRN IV PAIN LEVEL 8-10 07/18/21 13:30 07/18/21 15:50 DC Hydromorphone HCl (Dilaudid) 0.2 mg Q5MP PRN IV PAIN LEVEL 5-7 07/18/21 13:30 07/18/21 15:50 DC Lactated Ringer's 1,000 ml @ 100 mls/hr Q10H IV 07/18/21 13:30 07/18/21 15:50 DC Lidocaine HCl (LIDOCAINE 1% MDV 20ml) 0.1 ml ONCE PRN SQ DISCOMFORT BEFORE IV START 07/18/21 06:00 Metoclopramide HCl (REGLAN INJection) 10 mg Q6HP PRN IV NAUSEA OR VOMITING 07/18/21 13:55 07/18/21 13:55 DC 07/18/21 13:55 Morphine Sulfate (Morphine Sulfate Inj) 4 mg Q4HP PRN IV BREAKTHROUGH PAIN 07/18/21 13:15 Ondansetron HCl (ZOFRAN INJection) 4 mg Q4H PRN IV NAUSEA OR VOMITING 07/18/21 13:15 07/18/21 17:38 Ondansetron HCl (ZOFRAN INJection) 4 mg Q4HP PRN IV NAUSEA OR VOMITING 07/18/21 13:30 07/18/21 15:50 DC Oxycodone HCl (Roxicodone, Oxyir) 5 mg ASDIRECTED PRN PO PAIN LEVEL 1-4 07/18/21 13:30 07/18/21 15:50 DC 07/18/21 13:40 Oxycodone/ Acetaminophen (Percocet 5mg/ 325mg Tablet) 1 tab Q4HP PRN PO MODERATE PAIN (PS 5-7) 07/18/21 17:35 07/19/21 09:16 Oxycodone/ Acetaminophen (Percocet 5mg/ 325mg Tablet) 2 tab Q4HP PRN PO PAIN LEVEL 8-10 07/18/21 13:15 Promethazine HCl (PHENERGAN INJection) 12.5 mg Q6HP PRN IV NAUSEA 07/18/21 17:35 Allergies Coded Allergies: No Known Allergies (Unverified , 07/18/21) Objective Physical Examination Examination GENERAL APPEARANCE:Patient seen, laying in bed, awake, alert, and oriented. Comfortable, in no acute distress. SKIN: Warm and moist. BREAST: Right breast with postop ecchymosis status post fat injections. Left breast status post mastopexy with Ramirez pattern. All incisions intact. SHANTE drains: 10 cc/24 hr. NAC: Viable, warm, symmetrical, mild post-op ecchymosis, no expanding hematoma. LUNGS: Clear to auscultation bilaterally. No wheezing appreciated. HEART: No chest wall abnormalities. Regular rate and rhythm with no murmurs appreciated. ABDOMEN: Abdomen is soft, non-tender, non-distended. Incision intact. SHANTE drains with serosanguinous drainage. 50 cc/24hr each drain. EXTREMITIES: No edema identified. No calf tenderness. Vital Signs Vital Signs Date Time Temp Pulse Resp B/P (MAP) Pulse Ox O2 Delivery O2 Flow Rate FiO2 07/19/21 10:00 98.1 64 17 125/62 (83) 96 Room Air 07/18/21 13:30 2.0 I&Os I&O- Last 24 Hours up to 6 AM 07/19/21 05:59 Intake Total 2250 ml Output Total 75 ml Balance 2175 ml Impression Status post prior right breast reconstruction with fat transfer, left mastopexy and abdominal scar revision postop day 1. Stable for discharge. Dressings changed today. Continue monitoring SHANTE drains, continue with compressive garment and a surgical bra. Follow-up plastic surgery after discharge. Plan / VTE VTE Prophylaxis Ordered?: Yes KATHIE PEDERSEN DO Jul 19, 2021 11:34
[2021-07-19] MEDS ORDERED: PERCOCET PO (11:40)
== END 2021-07-19 13:00 | disposition home or self-care (01) ==
LOC: M SDC 06:08 → M MS5PR 13:13 → M SDC 07-19 13:00
PROVIDERS: ADMIT Plastic Surgery Surgery of the Hand; ATTEND Plastic Surgery Surgery of the Hand
DX: N65.1 Disproportion of reconstructed breast (principal); N64.81 Ptosis of breast; L90.5 Scar conditions and fibrosis of skin; Z85.3 Personal history of malignant neoplasm of breast
CPT/HCPCS: 15771; 15772; 19316; 19380; 81025; 88302; 96365; 96366; 96375; C9290; J0131; J0171; J0690; J1100; J1170; J1580; J2250; J2405; J2765; J3010

== ENCOUNTER → 2021-11-09 | Outpatient (CLI) | payer OTHER ==
[~2021-11-09] MED LIST changes: +FISH1000 PO; -LIDOCAINE 1% MDV 20ML VIAL SQ PRN; -LR 1,000 ML IV ONE; +PERCOCET PO
== END ==
LOC: M WHC 07:57
PROVIDERS: ATTEND Specialist
DX: Z12.31 Encounter for screening mammogram for malignant neoplasm of breast (principal); N63.20 Unspecified lump in the left breast, unspecified quadrant; R92.8 Other abnormal and inconclusive findings on diagnostic imaging of breast; R92.1 Mammographic calcification found on diagnostic imaging of breast

== ENCOUNTER → 2021-11-28 | Outpatient (CLI) | payer OTHER | LOC: M WHC 15:06 | PROVIDERS: ATTEND Specialist | DX: R92.2 Inconclusive mammogram (principal); N63.20 Unspecified lump in the left breast, unspecified quadrant; N60.02 Solitary cyst of left breast | CPT/HCPCS: 76642; 77065; G0279 ==

== ENCOUNTER → 2021-12-12 | Outpatient (CLI) | payer OTHER ==
[~2021-12-12] MED LIST changes: +**SFHN** LIDOCAINE 1% MDV 20ML VIAL ONE; +**SFHN** SODIUM BICARBONATE 8.4% 50MEQ 50ML VIAL ONE; +ALBU8.5H
[2021-12-12 11:21] VITALS: BP 126/78
== END ==
LOC: M WHCPRO 08:46
PROVIDERS: ATTEND Specialist
DX: N60.12 Diffuse cystic mastopathy of left breast (principal); R59.9 Enlarged lymph nodes, unspecified

== ENCOUNTER → 2022-11-29 | Outpatient (CLI) | payer OTHER ==
[~2022-11-29] MED LIST changes: -**SFHN** LIDOCAINE 1% MDV 20ML VIAL ONE; -**SFHN** SODIUM BICARBONATE 8.4% 50MEQ 50ML VIAL ONE; +ALBU8.5H IH; +CETI-24; +CETI-24 PO
== END ==
LOC: M WHC 10:50
PROVIDERS: ATTEND Specialist
DX: Z12.31 Encounter for screening mammogram for malignant neoplasm of breast (principal); Z85.3 Personal history of malignant neoplasm of breast; Z90.11 Acquired absence of right breast and nipple

== ENCOUNTER → 2023-05-15 | Outpatient (CLI) | payer OTHER | LOC: M RAD 13:45 | PROVIDERS: ATTEND Internal Medicine | DX: I65.21 Occlusion and stenosis of right carotid artery (principal) ==

== ENCOUNTER → 2023-06-10 | Outpatient (CLI) | payer OTHER ==
[~2023-06-10] MED LIST changes: +METHACHOLINE KIT INH ONE
== END ==
LOC: M CARPUL 14:33
PROVIDERS: ATTEND Internal Medicine
DX: J45.990 Exercise induced bronchospasm (principal)
CPT/HCPCS: 94070; J7674

== ENCOUNTER → 2023-12-02 | Outpatient (CLI) | payer OTHER ==
[~2023-12-02] MED LIST changes: -METHACHOLINE KIT INH ONE; +SIMV10TA21 PO
== END ==
LOC: M WHC 14:02
PROVIDERS: ATTEND Nurse Practitioner
DX: Z85.3 Personal history of malignant neoplasm of breast (principal)
CPT/HCPCS: 77067; G0279

== ENCOUNTER → 2024-12-03 | Outpatient (CLI) | payer OTHER | LOC: M WHC 12:48 | PROVIDERS: ATTEND Nurse Practitioner Women's Health | DX: Z12.31 Encounter for screening mammogram for malignant neoplasm of breast (principal); R92.332 Mammographic heterogeneous density, left breast; Z85.3 Personal history of malignant neoplasm of breast; Z90.11 Acquired absence of right breast and nipple ==

== ENCOUNTER → 2025-06-09 | Outpatient (REF) | payer OTHER ==
[2025-06-11 13:57] LABS: UPEP CREATININE 14 mg/dL (20-275); UPEP TOTAL PROTEIN < 4 mg/dL (5-24)
[2025-06-11 17:41] LABS: PROTEIN, TOTAL SO 7.9 g/dL (6.1-8.1)
[2025-06-15 07:01] LABS: UPEP ALBUMIN 100 %; URINE ALPHA 1 GLOBULIN 0 %; URINE ALPHA 2 GLOBULIN 0 %; URINE BETA GLOBULIN 0 %; URINE GAMMA GLOBULIN 0 %
== END ==
LOC: M LAB REF 17:25
PROVIDERS: ATTEND Internal Medicine
DX: R74.8 Abnormal levels of other serum enzymes (principal)